=== PATIENT | male | born 1945 | race Caucasian/White ===

== ENCOUNTER 2022-12-15 07:15 | Emergency (ER) | payer OTHER, SELFPAY ==
[2022-12-15 07:28] VITALS: BP 135/73; PULSE 63; RESP 18; TEMP 35.6; O2SAT 98; BMI 30.6
--- NOTE | 2022-12-15 08:39 | ED_ITS ---
HPI - General Adult General Date Seen: 12/15/22 Chief complaint: Hip Injury/Pain Stated complaint: L hip pain Time Seen by Provider: 12/15/22 08:04 Source: patient Mode of arrival: ambulatory Limitations: no limitations History of Present Illness HPI narrative: Patient is a 77-year-old male who has been having problems with his left IT band, has been doing some physical therapy in [place] where he lives. He is it sounds like transitioning to living here, is going to be here through the end of December. He woke up this morning at 5:30 a.m. with more severe pain in his left hip, it hurts to move the hip, hurts to stand, walk, sit. He took some aspirin which has helped somewhat but he still has quite a bit of pain. He has not had any trauma, no fevers, no swelling or redness. Pain does radiate somewhat down the leg, but it is very much related to movement. Related Data Home Medications Medication Instructions Recorded Confirmed amlodipine 5 mg tablet 5 mg PO DAILY 12/15/22 12/15/22 aspirin 325 mg tablet,delayed 325 mg PO DAILY 12/15/22 12/15/22 release atorvastatin 80 mg tablet 80 mg PO DAILY 12/15/22 12/15/22 bisoprolol fumarate 5 mg tablet 5 mg PO DAILY 12/15/22 12/15/22 bupropion HCl 150 mg 24 hr tablet, 150 mg PO DAILY 12/15/22 12/15/22 extended release clopidogrel 75 mg tablet 75 mg PO DAILY 12/15/22 12/15/22 diclofenac sodium 50 mg 50 mg PO DAILY 12/15/22 12/15/22 tablet,delayed release ezetimibe 10 mg tablet 10 mg PO DAILY 12/15/22 12/15/22 indomethacin 25 mg capsule 25 mg PO BID 12/15/22 12/15/22 loratadine 10 mg tablet 10 mg PO DAILY 12/15/22 12/15/22 losartan 100 mg tablet 100 mg PO DAILY 12/15/22 12/15/22 pantoprazole 40 mg tablet,delayed 40 mg PO DAILY 12/15/22 12/15/22 release (Protonix) tadalafil 5 mg tablet 5 mg PO DAILY PRN 12/15/22 12/15/22 Previous Rx's Medication Instructions Recorded lidocaine 5 % topical patch 1 patch topical DAILY #15 ea 12/15/22 lidocaine 5 % topical patch 1 patch topical DAILY #15 ea 12/15/22 oxycodone 5 mg tablet 2.5 - 5 mg (0.5 - 1 x 5 mg) PO Q6H 12/15/22 #7 tabs oxycodone 5 mg tablet 2.5 - 5 mg (0.5 - 1 x 5 mg) PO Q6H 12/15/22 PRN pain #7 tabs Allergies Allergy/AdvReac Type Severity Reaction Status Date / Time No Known Drug Allergies Allergy Verified 12/15/22 07:26 Review of Systems Status of ROS: Reports: 6 or more systems reviewed and unremarkable except as noted in History and below Exam Narrative: Exam Narrative: Vital signs reviewed In general, alert, elderly male. Nontoxic. Abdomen, soft and nontender. Extremities: Examination of the left hip reveals no erythema or warmth. He has full range of motion, he does not have any pain with passive flexion or extension. He does have some pain with full internal and external range of motion at the extremes of range of motion. He has more pain with active range of motion both flexion extension as well as Internal and external range of motion. He has some point tenderness just distal to the hip laterally, does not have tenderness over the trochanteric versus specifically. He does not have any groin tenderness. He walks with a slight limp. He does not have any edema in the leg, no calf tenderness. Pulses intact. Skin: Warm dry well perfused. Const: Vital Signs, click to edit/add: Vital Signs - 24 hr 12/15/22 07:28 Temperature 96.0 F L Pulse Rate [Right Pulse Oximeter] 63 Respiratory Rate 18 Blood Pressure [Ri ght Upper Arm] 135/73 Pulse Oximetry 98 Oxygen Delivery Me thod Room Air Course Course ED Course: Had a lengthy conversation with him about his pain. It does not seem to be trochanteric bursitis, I do not think this represents an infection in the joint, nor does it really see necessarily to be in the joint itself, his tenderness is distal to the hip more in the lateral leg. I do not think x-rays are likely to be necessarily helpful. He wondered about possible problems in his back, and I think this is less likely to be radicular given how related to movement his symptoms are and fact that he has point tenderness in the lateral thigh. I do think physical therapy is a reasonable course of action, [facility] and does not think he will be able to pursue that until he gets back to [place]. [facility] is [facility] and see if he would be able to see Orthopedics here see if they have anything more to offer in the short term. I am going to give him a few oxycodone for short-term relief as well as lidocaine patches. Recommend ice, Tylenol as well. Vital Signs Vital signs: Initial Vital Signs Temperature 96.0 F L 12/15/22 07:28 Temperature Source Temporal Artery Scan 12/15/22 07:28 Pulse Rate 63 12/15/22 07:28 Respiratory Rate 18 12/15/22 07:28 Blood Pressure 135/73 12/15/22 07:28 Blood Pressure Mean 93 12/15/22 07:28 Blood Pressure Position Sitting 12/15/22 07:28 Pulse Oximetry 98 12/15/22 07:28 Oxygen Delivery Method Room Air 12/15/22 07:28 Vital Signs Temperature 96.0 F L 12/15/22 07:28 Pulse Rate 63 12/15/22 07:28 Respiratory Rate 18 12/15/22 07:28 Blood Pressure 135/73 12/15/22 07:28 Pulse Oximetry 98 12/15/22 07:28 Oxygen Delivery Method Room Air 12/15/22 07:28 Temperature 96.0 F L 12/15/22 07:28 Pulse Rate 63 12/15/22 07:28 Respiratory Rate 18 12/15/22 07:28 Blood Pressure 135/73 12/15/22 07:28 Pulse Oximetry 98 12/15/22 07:28 Oxygen Delivery Method Room Air 12/15/22 07:28 Discharge Plan Discharge Clinical Impression: Hip pain, left Patient Disposition: Home, Self-Care Condition: Stable Instructions: Hip Pain (ED) Additional Instructions: Continue physical therapy when you return home. If able, you can follow-up with orthopedics here prior to return to [place], phone number is . Tylenol 1000 mg 3 times daily. Oxycodone if needed for more severe pain, 2 and half to 5 mg q.6 hours p.r.n.. Lidocaine patches may be helpful as well. Ice as needed. Prescriptions: New lidocaine 5 % adhesive patch,medicated 1 patch topical DAILY Qty: 15 0RF Rx Instructions: leave on most painful area for up to 12 hrs oxycodone 5 mg tablet 2.5 - 5 mg PO Q6H Qty: 7 0RF lidocaine 5 % adhesive patch,medicated 1 patch topical DAILY Qty: 15 0RF Rx Instructions: leave on most painful area for up to 12 hrs oxycodone 5 mg tablet 2.5 - 5 mg PO Q6H PRN (Reason: pain) Qty: 7 0RF No Action pantoprazole [Protonix] 40 mg tablet,delayed release (DR/EC) 40 mg PO DAILY atorvastatin 80 mg tablet 80 mg PO DAILY clopidogrel 75 mg tablet 75 mg PO DAILY losartan 100 mg tablet 100 mg PO DAILY amlodipine 5 mg tablet 5 mg PO DAILY bisoprolol fumarate 5 mg tablet 5 mg PO DAILY bupropion HCl 150 mg tablet extended release 24 hr 150 mg PO DAILY diclofenac sodium 50 mg tablet,delayed release (DR/EC) 50 mg PO DAILY tadalafil 5 mg tablet 5 mg PO DAILY PRN indomethacin 25 mg capsule 25 mg PO BID Rx Instructions: administer with food or milk ezetimibe 10 mg tablet 10 mg PO DAILY loratadine 10 mg tablet 10 mg PO DAILY aspirin 325 mg tablet,delayed release (DR/EC) 325 mg PO DAILY Stand Alone Forms: [facility] Info Instructions
--- NOTE | 2022-12-15 09:19 | XR_ITS ---
Patient: SHERIN SUMNER Facility:?[facility] Patient ID:?[id number] Site Patient ID:?[id number]. Site :?1945 Study:?XRay-Hip Left -12/15/2022 9:43:00 AM Ordering Physician:Tristan Wagner Final Report: INDICATION: Pain. COMPARISON: None. TECHNIQUE: AP pelvis, AP left hip, frog-leg lateral left hip, 3 views. FINDINGS: No acute or healing fractures. Normal alignment. Mild decreased femoral head neck offset bilaterally. This can contribute to CAM type impingement symptoms. Mild osseous degenerative change with overall preservation of the left hip joint space. Severe atherosclerotic calcifications. Normal overall bone mineralization. IMPRESSION: No acute left hip fracture. Decreased femoral head neck offset may contribute to impingement symptoms. Dictated by Maria Isabel Prater MD @ 12/15/2022 10:08:39 AM Signed by:?Maria Isabel Prater MD @12/15/2022 10:08:39 AM (Electronic Signature)
== END 2022-12-15 10:36 | disposition home or self-care (01) ==
LOC: ED 08:48
PROVIDERS: Emergency Provider Emergency Medicine
DX: M25.552 Pain in left hip (principal)
CPT/HCPCS: 73502; 99283; 99284

== ENCOUNTER 2023-03-20 15:18 | Emergency (ER) | payer OTHER, SELFPAY ==
[2023-03-20 15:34] VITALS: BP 127/74; PULSE 61; RESP 16; TEMP 36.5; O2SAT 97; BMI 30.7
--- NOTE | 2023-03-20 15:42 | ED.NURSE ---
Consulted with MD about pt's new onset of loss of balance/dizziness. Per MD, pt does not meet stroke code criteria.
--- NOTE | 2023-03-20 16:38 | ED_ITS ---
HPI - General Adult General Chief complaint: Weakness Stated complaint: fall, lack of balance Time Seen by Provider: 03/20/23 16:13 History of Present Illness HPI narrative: This 77-year-old male comes in reporting an episode of feeling off balance this morning. He states that he bent over and when he stood up he was off balance. He does not report any specific vertigo symptoms but did feel like he might fall over. He does not report any unilateral weakness and his speech is normal. Since then he feels better. He states that he took a nap and improved after this. He does not have any fevers report any other symptoms. Related Data Home Medications Medication Instructions Recorded Confirmed amlodipine 5 mg tablet 5 mg PO DAILY 12/15/22 03/20/23 aspirin 325 mg tablet,delayed 325 mg PO DAILY 12/15/22 03/20/23 release atorvastatin 80 mg tablet 80 mg PO DAILY 12/15/22 03/20/23 bisoprolol fumarate 5 mg tablet 5 mg PO DAILY 12/15/22 03/20/23 bupropion HCl 150 mg 24 hr tablet, 150 mg PO DAILY 12/15/22 03/20/23 extended release clopidogrel 75 mg tablet 75 mg PO DAILY 12/15/22 03/20/23 ezetimibe 10 mg tablet 10 mg PO DAILY 12/15/22 03/20/23 indomethacin 25 mg capsule 25 mg PO BID PRN 12/15/22 03/20/23 loratadine 10 mg tablet 10 mg PO DAILY 12/15/22 03/20/23 losartan 100 mg tablet 100 mg PO DAILY 12/15/22 03/20/23 pantoprazole 40 mg tablet,delayed 40 mg PO DAILY 12/15/22 03/20/23 release (Protonix) tadalafil 5 mg tablet 5 mg PO DAILY PRN 12/15/22 03/20/23 ketoconazole 2 % topical cream 0.5 topical BID 03/20/23 prazosin 5 mg capsule 5 mg PO QHS 03/20/23 03/20/23 rosuvastatin 20 mg tablet 20 mg PO QDAY 03/20/23 03/20/23 Previous Rx's Medication Instructions Recorded meclizine 25 mg tablet 25 mg PO QID #20 tabs 03/20/23 Allergies Allergy/AdvReac Type Severity Reaction Status Date / Time No Known Drug Allergies Allergy Verified 03/20/23 15:38 Review of Systems Status of ROS: Reports: 10 or more systems reviewed and unremarkable except as noted in History and below Narrative: Constitutional: No fevers, no weight gain or loss. Eyes: No discharge. No vision changes. HENT: No congestion, no sore throat, no ear pain. Cardiovascular: No chest pain, no palpitations. Respiratory: No shortness of breath, no wheezes, no cough. Gastrointestinal: No abdominal pain, no vomiting, no diarrhea. Genitourinary: No dysuria, no hematuria. Musculoskeletal: Normal range of motion. Skin: No rashes, no pruritis. Neurological: No weakness, sensory change, speech change. Episode of feeling off balance as described above. Endo/Heme/Allergies: No bruising or bleeding. No polydipsia. Pysch: no suicidality, no anxiety, no insomnia. All other systems reviewed and are negative. Exam Narrative: Exam Narrative: Constitutional: Well-developed, well-nourished, no acute distress. HEENT: Normocephalic, atraumatic. Neck: Normal range of motion. Nontender. Supple. Heart: Regular. No murmurs. Normal rate. Intact distal pulses. Lungs: Clear to auscultation. No chest discomfort. No wheezes, rhonchi, or rales. Abdomen: Normal bowel sounds. Nontender. No rebound tenderness. Genitalia: Deferred. Back: No midline tenderness. Normal range of motion. Extremities: Normal range of motion. No injury. Skin: Intact. No rash. Warm. No erythema or pallor. Neurologic: No altered sensation. No weakness. Alert and oriented. No facial asymmetry. Tongue is midline. [id number] is normal. No pronator drift. Soap Drier Operator strength is equal bilaterally. He is able to raise each leg from the bed to my hand. Psychiatric: No suicidality. No anxiety or depression. No insomnia. Nursing notes and vitals signs are reviewed. Const: Vital Signs, click to edit/add: Vital Signs - 24 hr 03/20/23 15:34 Temperature 97.7 F Pulse Rate [Pulse Oximeter] 61 Respiratory Rate 16 Blood Pressure [Ri ght Upper Arm] 127/74 Pulse Oximetry 97 Oxygen Delivery Me thod Room Air Course Vital Signs Vital signs: Initial Vital Signs Temperature 97.7 F 03/20/23 15:34 Temperature Source Temporal Artery Scan 03/20/23 15:34 Pulse Rate 61 03/20/23 15:34 Respiratory Rate 16 03/20/23 15:34 Blood Pressure 127/74 03/20/23 15:34 Blood Pressure Mean 91 03/20/23 15:34 Blood Pressure Position Sitting 03/20/23 15:34 Pulse Oximetry 97 03/20/23 15:34 Oxygen Delivery Method Room Air 03/20/23 15:34 Vital Signs Temperature 97.7 F 03/20/23 15:34 Pulse Rate 61 03/20/23 15:34 Respiratory Rate 16 03/20/23 15:34 Blood Pressure 127/74 03/20/23 15:34 Pulse Oximetry 97 03/20/23 15:34 Oxygen Delivery Method Room Air 03/20/23 15:34 Temperature 97.7 F 03/20/23 15:34 Pulse Rate 61 03/20/23 15:34 Respiratory Rate 16 03/20/23 15:34 Blood Pressure 127/74 03/20/23 15:34 Pulse Oximetry 97 03/20/23 15:34 Oxygen Delivery Method Room Air 03/20/23 15:34 Medical Decision Making MDM Narrative Medical decision making narrative: This patient had a feeling of off balance that occurred when he made a position change from bending forward to standing upright. He continued to have some feeling of woozy-ness but this is improved since then. Currently he is not having any symptoms. He does not have any hearing changes. He does sound that his symptoms are likely due to a peripheral process involving his vestibular system. I did offer lab and imaging studies but stated that this is a clinical diagnosis and such results are for ruling out other things. In a process of shared decision making the patient declined any further studies. He did receive a tablet of meclizine. He is ambulatory and has normal exam. Prescription for meclizine is also provided. I did describe signs and symptoms that would indicate a need for return and re-evaluation. Discharge Plan Discharge Clinical Impression: Acute vestibular neuritis Patient Disposition: Home, Self-Care Condition: Improved Additional Instructions: Take meclizine as needed and directed. Activity as tolerated. Follow up with MD return if worsening. Prescriptions: New meclizine 25 mg tablet 25 mg PO QID Qty: 20 0RF No Action prazosin 5 mg capsule 5 mg PO QHS rosuvastatin 20 mg tablet 20 mg PO QDAY ketoconazole 2 % cream 0.5 topical BID pantoprazole [Protonix] 40 mg tablet,delayed release (DR/EC) 40 mg PO DAILY atorvastatin 80 mg tablet 80 mg PO DAILY clopidogrel 75 mg tablet 75 mg PO DAILY losartan 100 mg tablet 100 mg PO DAILY amlodipine 5 mg tablet 5 mg PO DAILY bisoprolol fumarate 5 mg tablet 5 mg PO DAILY bupropion HCl 150 mg tablet extended release 24 hr 150 mg PO DAILY tadalafil 5 mg tablet 5 mg PO DAILY PRN indomethacin 25 mg capsule 25 mg PO BID PRN Rx Instructions: administer with food or milk ezetimibe 10 mg tablet 10 mg PO DAILY loratadine 10 mg tablet 10 mg PO DAILY aspirin 325 mg tablet,delayed release (DR/EC) 325 mg PO DAILY Follow Up/Referrals: Provider,Not a Local [Primary Care Provider] - Stand Alone Forms: [facility] Info Instructions
[2023-03-20] MEDS: MECLIZINE HCL 25 MG TABLET PO (16:56)
--- OUTSIDE RECORDS SUMMARY | 2023-03-20 16:57 | XMS_ITS | CCD ---
Author Name Unknown Address [address] [place] [address] [place], [place] [id number] Organization Unknown Address [address] [place] [address] [place], [place] [id number] Care Team Providers Care Nutrition Worker Name Role Phone DANILO JULIO MD Attending Physician [phone] Vital Signs Unknown or Not Available. Allergies Allergy Code Allergy Type Reaction Status No Known Allergies 0 No known allergies Active Procedures Unknown or Not Available. History of Immunizations Unknown or Not Available. 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 Active Medications Medication Code Dose Units Frequency Route Modificatio n Start Date/Time amLODIPine Besylate 5MG Oral Tablet 751576 5 MILLIGRAMS DAILY ORAL 023 12:19 Prescription Detail 5 MILLIGRAMS ORAL DAILY Aspirin 325MG Oral Tablet 574524 325 MILLIGRAMS DAILY ORAL 023 12:19 Prescription Detail 325 MILLIGRAMS ORAL DAILY Atorvastatin Calcium 80MG Oral Tablet 297327 80 MILLIGRAMS EVENING ORAL 023 12:19 Prescription Detail 80 MILLIGRAMS ORAL EVENING Bisoprolol Fumarate 5MG Oral Tablet 697612 5 MILLIGRAMS DAILY ORAL 023 12:19 Prescription Detail 5 MILLIGRAMS ORAL DAILY Clopidogrel 75MG Oral Tablet 994458 75 MILLIGRAMS DAILY ORAL 3 12:19 Prescription Detail 75 MILLIGRAMS ORAL DAILY Diclofenac Sodium 50MG Oral Tablet, Enteric Coated 676128 50 MILLIGRAMS NEEDED DAILY ORAL 08/26/2022 12:19 Prescription Detail 50 MILLIGRAMS ORAL NEEDED DAILY Ezetimibe 10 MG Oral Tablet 059286 10 MG DAILY ORAL 08/27/19 12:19 Prescription Detail 10 MG ORAL DAILY Loratadine 10MG Oral Tablet 600663 10 MILLIGRAMS NEEDED DAILY ORAL 08/26/2022 12:19 Prescription Detail 10 MILLIGRAMS ORAL NEEDED DAILY Losartan Potassium 100MG Oral Tablet 715845 100 MILLIGRAMS DAILY ORAL 023 12:19 Prescription Detail 100 MILLIGRAMS ORAL DAILY Pantoprazole Sodium 40MG Oral Tablet, Enteric Coated 680980 40 MILLIGRAMS DAILY ORAL 08/05 12:19 Prescription Detail 40 MILLIGRAMS ORAL DAILY Prazosin HCl 5MG Oral Capsule 527321 5 MILLIGRAMS EVENING ORAL 12:19 Prescription Detail 5 MILLIGRAMS ORAL EVENING Vardenafil HCl 20MG Oral Tablet 307245 20 MILLIGRAMS NEEDED DAILY ORAL 08/26/2022 12:19 Prescription Detail 20 MILLIGRAMS ORAL NEEDED DAILY Triamcinolone Acetonide 0.1% Topical application Cream 7447130 1 APPLICATION NEEDED 2X DAILY TOPICAL 08/26/2022 12:15 Prescription Detail 1 APPLICATION TOPICAL NEEDED 2X DAILY FOR ITCHY SKIN IN GROIN Medications Administered During Visit Unknown or Not Available. Encounters Encounter Diagnosis Diagnosis Code Start Date Acute respiratory failure, u nspecified whether with hypoxia or hypercapnia J9600 08/24/2022 Social History Smoking Status Code Start Date End Date Never smoker 149376161 Patient Decision Aids Unknown or Not Available. Discharge Instructions You were admitted to [facility] on 08/24/2022 17:48 with a principal diagnosis of Cardio-Respiratory Failure and Shock You were discharged from [facility] on 08/24/2022 21:15 Should you have any questions prior to discharge, please contact a member of your healthcare team. If you have left the hospital and have any questions, please contact your primary care physician. Chief Complaint and Reason For Visit Unknown or Not Available. Function Status Unknown or Not Available. Plan of Care Unknown or Not Available. Referral/Transition of Care Unknown or Not Available.
--- OUTSIDE RECORDS SUMMARY | 2023-03-20 16:57 | XMS_ITS | CCD ---
Author Name Unknown Address [address] [place] [address] [place], [place] [id number] Organization Unknown Address [address] [place], [place] [address], [place] [id number] Care Team Providers Care Irrigation Equipment Remover Name Role Phone GLEN OROZCO Attending Physician [phone] [place] OROZCO Rounding (Secondary) Physicia n [phone] Vital Signs Unknown or Not Available. Allergies Allergy Code Allergy Type Reaction Status No Known Allergies 0 No known allergies Active Procedures Unknown or Not Available. History of Immunizations Unknown or Not Available. Problems Problem Code Start Date Resolved Date Status Hematuria 49360621 10/29/2019 Active Anemia 461807730 10/29/2019 Active Urinary retention 109225716 10/31/2019 Active Prostatitis 8494409 Active Left inguinal hernia 766626659 Acti ve BPH 722242867 Active HTN 06616615 Active Transurethral resection of p rostate syndrome 037485456 Active Obstructive sleep apnea 55754582 A ctive Urinary tract infection 48160814 10/31/2019 A ctive Urticaria 450097348 10/19/2020 Active Results TESTOSTERONE TOTAL (MALES) S PH - Collect Date/Time: 10/29/2022 09:54 Test Name Code Test Result Test Units Test Ref Rang e TESTOSTERONE 190.15 ng/dL L=175 H=781 Active Medications Medication Code Dose Units Frequency Route Modificatio n Start Date/Time amLODIPine Besylate 5MG Oral Tablet 607538 5 MILLIGRAMS DAILY ORAL 023 12:19 Prescription Detail 5 MILLIGRAMS ORAL DAILY Aspirin 325MG Oral Tablet 827151 325 MILLIGRAMS DAILY ORAL 023 12:19 Prescription Detail 325 MILLIGRAMS ORAL DAILY Atorvastatin Calcium 80MG Oral Tablet 461016 80 MILLIGRAMS EVENING ORAL 023 12:19 Prescription Detail 80 MILLIGRAMS ORAL EVENING Bisoprolol Fumarate 5MG Oral Tablet 274920 5 MILLIGRAMS DAILY ORAL 023 12:19 Prescription Detail 5 MILLIGRAMS ORAL DAILY Clopidogrel 75MG Oral Tablet 898966 75 MILLIGRAMS DAILY ORAL 3 12:19 Prescription Detail 75 MILLIGRAMS ORAL DAILY Diclofenac Sodium 50MG Oral Tablet, Enteric Coated 460238 50 MILLIGRAMS NEEDED DAILY ORAL 08/26/2022 12:19 Prescription Detail 50 MILLIGRAMS ORAL NEEDED DAILY Ezetimibe 10 MG Oral Tablet 211664 10 MG DAILY ORAL 08/27/19 12:19 Prescription Detail 10 MG ORAL DAILY Loratadine 10MG Oral Tablet 895821 10 MILLIGRAMS NEEDED DAILY ORAL 08/26/2022 12:19 Prescription Detail 10 MILLIGRAMS ORAL NEEDED DAILY Losartan Potassium 100MG Oral Tablet 413413 100 MILLIGRAMS DAILY ORAL 023 12:19 Prescription Detail 100 MILLIGRAMS ORAL DAILY Pantoprazole Sodium 40MG Oral Tablet, Enteric Coated 711936 40 MILLIGRAMS DAILY ORAL 08/05 12:19 Prescription Detail 40 MILLIGRAMS ORAL DAILY Prazosin HCl 5MG Oral Capsule 581540 5 MILLIGRAMS EVENING ORAL 12:19 Prescription Detail 5 MILLIGRAMS ORAL EVENING Vardenafil HCl 20MG Oral Tablet 165722 20 MILLIGRAMS NEEDED DAILY ORAL 08/26/2022 12:19 Prescription Detail 20 MILLIGRAMS ORAL NEEDED DAILY Triamcinolone Acetonide 0.1% Topical application Cream 9480048 1 APPLICATION NEEDED 2X DAILY TOPICAL 08/26/2022 12:15 Prescription Detail 1 APPLICATION TOPICAL NEEDED 2X DAILY FOR ITCHY SKIN IN GROIN Medications Administered During Visit Unknown or Not Available. Encounters Encounter Diagnosis Diagnosis Code Start Date Other specified abnormal findings of blood chemi [facility] R7989 10/29/2022 Social History Smoking Status Code Start Date End Date Never smoker [id number] Patient Decision Aids Unknown or Not Available. Discharge Instructions You were admitted to [facility] on 10/29/2022 09:53 with a principal diagnosis of Other specified abnormal findings of blood chemistry You had the following tests done:TESTOSTERONE TOTAL (MALES) SPH You were discharged from [facility] on 10/29/2022 09:53 Should you have any questions prior to discharge, please contact a member of your healthcare team. If you have left the hospital and have any questions, please contact your primary care physician. Chief Complaint and Reason For Visit Chief Complaint Date of Onset R7989 Function Status Unknown or Not Available. Plan of Care Unknown or Not Available. Referral/Transition of Care Unknown or Not Available.
--- OUTSIDE RECORDS SUMMARY | 2023-03-20 16:57 | XMS_ITS | CCD ---
Author Name Unknown Address [address] [place] [address] [place], [place] [id number] Organization Unknown Address [address] [place] [address] [place], [place] [id number] Care Team Providers Care Collections Associate Name Role Phone DELIA CALVO MD Attending Physician [phone] Vital Signs Vital Sign Value Unit Date/Time Recent/Initial ? BP Systolic 150 mmHg 10/22/2022 08:23 Initial VS BP Diastolic 74 mmHg 10/22/2022 08:23 Initia l VS Respiratory Rate 16 bpm 10/22/2022 08:23 In itial VS Heart Rate 60 bpm 10/22/2022 08:23 Initial VS O2 % BldC Oximetry 96 % 10/22/2022 08:23 Initial VS Body Temperature 98 degrees 10/22/2022 08:23 In itial VS Allergies Allergy Code Allergy Type Reaction Status No Known Allergies 0 No known allergies Active Procedures Procedure Code Procedure Type Date Colonoscopy, Flexible, Proxi mal To Splenic Flexure; w/Bx, Single/Multiple 35289 CPT 10/22/2022 EGD Transoral Biopsy Single/Multiple 75891 CPT 10/22/2022 History of Immunizations Unknown or Not Available. 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 Active Medications Unknown or Not Available. Medications Administered During Visit Unknown or Not Available. Encounters Encounter Diagnosis Diagnosis Code Start Date Encounter for screening for malignant neoplasm o f colon Z1211 10/22/2022 Social History Smoking Status Code Start Date End Date Never smoker [id number] Patient Decision Aids Patient Decision Aid SPH Colonoscopy Discharge SPH EGD Discharge Discharge Instructions You were admitted to [facility] on 10/22/2022 07:41 with a principal diagnosis of Encounter for screening for malignant neoplasm of colon You had the following procedures done:Colonoscopy, Flexible, Proximal To Splenic Flexure; w/Bx, Single/MultipleEGD Transoral Biopsy Single/Multiple You were discharged from [facility] on 10/22/2022 10:38 Should you have any questions prior to discharge, please contact a member of your healthcare team. If you have left the hospital and have any questions, please contact your primary care physician. Chief Complaint and Reason For Visit Chief Complaint Date of Onset ANEMIA FAM HX OF COLON CANCER JODIE PEREIRA 10/11/2022 Function Status Unknown or Not Available. Plan of Care Unknown or Not Available. Referral/Transition of Care Unknown or Not Available.
--- OUTSIDE RECORDS SUMMARY | 2023-03-20 16:57 | XMS_ITS | CCD ---
Author Name Unknown Address [address] [place] [address] [place], [place] [id number] Organization Unknown Address [address] [place], [place] [address], [place] [phone] Care Team Providers Care Betting Agency Manager Name Role Phone GLEN OROZCO Attending Physician [phone] Vital Signs Unknown or Not Available. Allergies Allergy Code Allergy Type Reaction Status No Known Allergies 0 No known allergies Active Procedures Unknown or Not Available. History of Immunizations Unknown or Not Available. Problems Problem Code Start Date Resolved Date Status Hematuria 79402479 10/29/2019 Active Anemia 196765121 10/29/2019 Active Urinary retention 644533727 10/31/2019 Active Prostatitis 5004205 Active Left inguinal hernia 950540240 Acti ve BPH 507835351 Active HTN 60474218 Active Transurethral resection of p rostate syndrome 478305205 Active Obstructive sleep apnea 63488423 A ctive Urinary tract infection 87180606 10/31/2019 A ctive Urticaria 439443587 10/19/2020 Active Results Unknown or Not Available. Active Medications Medication Code Dose Units Frequency Route Modificatio n Start Date/Time amLODIPine Besylate 5MG Oral Tablet 633680 5 MILLIGRAMS DAILY ORAL 023 12:19 Prescription Detail 5 MILLIGRAMS ORAL DAILY Aspirin 325MG Oral Tablet 054856 325 MILLIGRAMS DAILY ORAL 023 12:19 Prescription Detail 325 MILLIGRAMS ORAL DAILY Atorvastatin Calcium 80MG Oral Tablet 460905 80 MILLIGRAMS EVENING ORAL 023 12:19 Prescription Detail 80 MILLIGRAMS ORAL EVENING Bisoprolol Fumarate 5MG Oral Tablet 090123 5 MILLIGRAMS DAILY ORAL 023 12:19 Prescription Detail 5 MILLIGRAMS ORAL DAILY Clopidogrel 75MG Oral Tablet 399414 75 MILLIGRAMS DAILY ORAL 3 12:19 Prescription Detail 75 MILLIGRAMS ORAL DAILY Diclofenac Sodium 50MG Oral Tablet, Enteric Coated 180864 50 MILLIGRAMS NEEDED DAILY ORAL 08/26/2022 12:19 Prescription Detail 50 MILLIGRAMS ORAL NEEDED DAILY Ezetimibe 10 MG Oral Tablet 458518 10 MG DAILY ORAL 08/27/19 12:19 Prescription Detail 10 MG ORAL DAILY Loratadine 10MG Oral Tablet 302350 10 MILLIGRAMS NEEDED DAILY ORAL 08/26/2022 12:19 Prescription Detail 10 MILLIGRAMS ORAL NEEDED DAILY Losartan Potassium 100MG Oral Tablet 157825 100 MILLIGRAMS DAILY ORAL 023 12:19 Prescription Detail 100 MILLIGRAMS ORAL DAILY Pantoprazole Sodium 40MG Oral Tablet, Enteric Coated 108789 40 MILLIGRAMS DAILY ORAL 08/05 12:19 Prescription Detail 40 MILLIGRAMS ORAL DAILY Prazosin HCl 5MG Oral Capsule 671889 5 MILLIGRAMS EVENING ORAL 12:19 Prescription Detail 5 MILLIGRAMS ORAL EVENING Vardenafil HCl 20MG Oral Tablet 027274 20 MILLIGRAMS NEEDED DAILY ORAL 08/26/2022 12:19 Prescription Detail 20 MILLIGRAMS ORAL NEEDED DAILY Triamcinolone Acetonide 0.1% Topical application Cream 7752085 1 APPLICATION NEEDED 2X DAILY TOPICAL 08/26/2022 12:15 Prescription Detail 1 APPLICATION TOPICAL NEEDED 2X DAILY FOR ITCHY SKIN IN GROIN Medications Administered During Visit Unknown or Not Available. Encounters Encounter Diagnosis Diagnosis Code Start Date History and physical examination, administrative [id number] 10/28/2022 Social History Smoking Status Code Start Date End Date Never smoker [id number] Patient Decision Aids Unknown or Not Available. Discharge Instructions You were admitted to [facility] on 10/28/2022 19:52 with a principal diagnosis of Encounter for other administrative examinations You were discharged from [facility] on 10/28/2022 19:52 Should you have any questions prior to discharge, please contact a member of your healthcare team. If you have left the hospital and have any questions, please contact your primary care physician. Chief Complaint and Reason For Visit Chief Complaint Date of Onset L819 Function Status Unknown or Not Available. Plan of Care Unknown or Not Available. Referral/Transition of Care Unknown or Not Available.
--- OUTSIDE RECORDS SUMMARY | 2023-03-20 16:57 | XMS_ITS | CCD ---
Author Name Unknown Address [address] [place] [address] [place], [place] [phone] Organization Unknown Address [address] [place] [address] [place], [place] [phone] Care Team Providers Care Heavy Duty Mechanic Farm Equipment Name Role Phone KARLA PABON Attending Physician [phone] Vital Signs Unknown or Not Available. Allergies Allergy Code Allergy Type Reaction Status No Known Allergies 0 No known allergies Active Procedures Procedure Code Procedure Type Date XR CHEST 2V 125952847 SNOMED CT 09/16/2022 History of Immunizations Unknown or Not Available. Problems Problem Code Start Date Resolved Date Status Hematuria 83883595 10/29/2019 Active Anemia 994807529 10/29/2019 Active Urinary retention 889664470 10/31/2019 Active Prostatitis 2467987 Active Left inguinal hernia 585505020 Acti ve BPH 107110655 Active HTN 36302425 Active Transurethral resection of p rostate syndrome 082234621 Active Obstructive sleep apnea 73826193 A ctive Urinary tract infection 75386377 10/31/2019 A ctive Urticaria 071395364 10/19/2020 Active Results COMP METABOLIC PANEL - [facility] ct Date/Time: 09/16/2022 09:52 Test Name Code Test Result Test Units Test Ref Rang e GLUCOSE 2345-7 109 mg/dL L=74 H=109 BUN 3094-0 15 mg/dL L=7 H=25 CREATININE 2160-0 1.0 mg/dL L=0.7 H=1.3 SODIUM 2951-2 141 mEQ/L L=136 H=145 POTASSIUM 2823-3 4.0 mEQ/L L=3.5 H=5.1 CHLORIDE 2075-0 108 mEQ/L L=98 H=107 CO2 2028-9 28 mEQ/L L=21 H=31 CALCIUM 67952-4 9.6 mg/dL L=8.6 H=10.3 TOTAL PROTEIN 2885-2 6.9 g/dL L=6.4 H=8.9 ALBUMIN 1751-7 4.0 g/dL L=3.5 H=5.7 AST 1920-8 22 U/L L=13 H=39 ALT 1742-6 27 U/L L=10 H=63 ALKALINE PHOS 6768-6 60 U/L L=34 H=104 TOTAL BILI 1975-2 0.9 mg/dL L=0.3 H=1.0 ANION GAP 11681-0 5 mEq/L L=7 H=16 AGE [birth year]-0 76 years eGFR NonAA 26280-1 73 [place] [address]-7 88 CBC - Collect Date/Time: 09:52 Test Name Code Test Result Test Units Test Ref Rang e WBC 6690-2 4.9 K/uL L=4.5 H=11.0 RBC 789-8 4.2 M/uL L=4.6 H=6.0 HEMOGLOBIN 718-7 13.0 g/dL L=14.0 H=18.0 HEMATOCRIT 4544-3 38.3 % L=41.0 H=53.0 MCV 787-2 92.3 fL L=80.0 H=100 MCH 785-6 31.3 pg L=25.0 H=34.0 MCHC 786-4 33.9 g/dl L=31.0 H=37.0 RDW 788-0 12.1 % L=11.0 H=14.5 PLATELET 777-3 210 K/uL L=150 H=450 #NEUT 751-8 2.92 K/ul L=1.50 H=7.20 %NEUT 770-8 59.3 % L=40.0 H=79.0 %LYMPH 736-9 24.9 % L=20.0 H=40.0 %MONO 5905-5 10.5 % L=1.0 H=10.0 %EOSIN 713-8 4.30 % L=1.00 H=4.00 %BASO 706-2 0.60 % L=0.00 H=1.00 %IG 58707-6 0.40 % L=0.00 H=8.00 MANUAL DIFF 46818-9 NOT INDICATED N/A RBC MORPH 6742-1 NOT INDICATED N/A PLT ESTIMATE 39188-1 NOT INDICATED N/A Active Medications Medication Code Dose Units Frequency Route Modificatio n Start Date/Time amLODIPine Besylate 5MG Oral Tablet 640110 5 MILLIGRAMS DAILY ORAL 023 12:19 Prescription Detail 5 MILLIGRAMS ORAL DAILY Aspirin 325MG Oral Tablet 905307 325 MILLIGRAMS DAILY ORAL 023 12:19 Prescription Detail 325 MILLIGRAMS ORAL DAILY Atorvastatin Calcium 80MG Oral Tablet 237523 80 MILLIGRAMS EVENING ORAL 023 12:19 Prescription Detail 80 MILLIGRAMS ORAL EVENING Bisoprolol Fumarate 5MG Oral Tablet 313328 5 MILLIGRAMS DAILY ORAL 023 12:19 Prescription Detail 5 MILLIGRAMS ORAL DAILY Clopidogrel 75MG Oral Tablet 803326 75 MILLIGRAMS DAILY ORAL 3 12:19 Prescription Detail 75 MILLIGRAMS ORAL DAILY Diclofenac Sodium 50MG Oral Tablet, Enteric Coated 925180 50 MILLIGRAMS NEEDED DAILY ORAL 08/26/2022 12:19 Prescription Detail 50 MILLIGRAMS ORAL NEEDED DAILY Ezetimibe 10 MG Oral Tablet 749009 10 MG DAILY ORAL 08/27/19 12:19 Prescription Detail 10 MG ORAL DAILY Loratadine 10MG Oral Tablet 189103 10 MILLIGRAMS NEEDED DAILY ORAL 08/26/2022 12:19 Prescription Detail 10 MILLIGRAMS ORAL NEEDED DAILY Losartan Potassium 100MG Oral Tablet 499659 100 MILLIGRAMS DAILY ORAL 023 12:19 Prescription Detail 100 MILLIGRAMS ORAL DAILY Pantoprazole Sodium 40MG Oral Tablet, Enteric Coated 829097 40 MILLIGRAMS DAILY ORAL 08/05 12:19 Prescription Detail 40 MILLIGRAMS ORAL DAILY Prazosin HCl 5MG Oral Capsule 862386 5 MILLIGRAMS EVENING ORAL 3 12:19 Prescription Detail 5 MILLIGRAMS ORAL EVENING Vardenafil HCl 20MG Oral Tablet 223544 20 MILLIGRAMS NEEDED DAILY ORAL 08/26/2022 12:19 Prescription Detail 20 MILLIGRAMS ORAL NEEDED DAILY Triamcinolone Acetonide 0.1% Topical application Cream 0278548 1 APPLICATION NEEDED 2X DAILY TOPICAL 08/26/2022 12:15 Prescription Detail 1 APPLICATION TOPICAL NEEDED 2X DAILY FOR ITCHY SKIN IN GROIN Medications Administered During Visit Unknown or Not Available. Encounters Encounter Diagnosis Diagnosis Code Start Date Pneumonia, unspecified organism J189 09/16/2022 Social History Smoking Status Code Start Date End Date Never smoker [id number] Patient Decision Aids Unknown or Not Available. Discharge Instructions You were admitted to [facility] on 09/16/2022 10:26 with a principal diagnosis of Pneumonia, unspecified organism You had the following tests done:CBCCOMP METABOLIC PANEL You were discharged from [facility] on 09/16/2022 10:26 Should you have any questions prior to discharge, please contact a member of your healthcare team. If you have left the hospital and have any questions, please contact your primary care physician. Chief Complaint and Reason For Visit Chief Complaint Date of Onset J189 Function Status Unknown or Not Available. Plan of Care Unknown or Not Available. Referral/Transition of Care Unknown or Not Available.
--- OUTSIDE RECORDS SUMMARY | 2023-03-20 16:58 | XMS_ITS | CCD ---
Author Name Unknown Address [address] [place] [address] [place] [id number] Organization Unknown Address [address] [place] [address] [place] [phone] Care Team Providers Care Entry Level Mechanical Engineer Name Role Phone BRODIE MANRIQUE MD Attending Physician [phone] BRODIE MANRIQUE MD Er Physician 2 [phone] Vital Signs Vital Sign Value Unit Date/Time Recent/Initial ? Height 68 in 10/31/2019 11:40 Most Rec ent VS Height 68 in 10/31/2019 11:40 Initial VS BMI (Body Mass Index) 28.89 kg/m^2 10/31/2019 11: 40 Initial VS Weight Measured 190 lbs 10/31/2019 11:40 Ini tial VS BSA (Body Surface Area) 2.03 m^2 10/31/2019 1 1:40 Initial VS BP Systolic 155 mmHg 10/31/2019 11:40 Initial VS BP Diastolic 71 mmHg 10/31/2019 11:40 Initia l VS Respiratory Rate 16 bpm 10/31/2019 11:40 In itial VS Heart Rate 69 bpm 10/31/2019 11:40 Initial VS O2 % BldC Oximetry 96 % 10/31/2019 11:40 Initial VS Body Temperature 98.5 degrees 10/31/2019 11:40 In itial VS BP Systolic 152 mmHg 10/31/2019 15:30 Most Re cent VS BP Diastolic 75 mmHg 10/31/2019 15:30 Most R ecent VS Respiratory Rate 13 bpm 10/31/2019 15:[address] Recent VS Heart Rate 62 bpm 10/31/2019 15:30 Most Rec ent VS O2 % BldC Oximetry 95 % 10/31/2019 15:30 Most Recent VS Body Temperature 98.7 degrees 10/31/2019 15:[address] Recent VS Allergies Allergy Code Allergy Type Reaction Status No Known Allergies 0 No known allergies Active Procedures Procedure Code Procedure Type Date TROPONIN I 415633329 SNOMED CT 10/31/2019 PROTIME [facility] CT 10/31/2019 TSH 3 W/REFLEX TO FT4 146717237 [facility] CT 2019 CULTURE URINE 408282390 [facility] CT 10/31/2019 History of Immunizations Unknown or Not Available. Problems Problem Code Start Date Resolved Date Status Hematuria 00240945 10/29/2019 Active Anemia 677664510 10/29/2019 Active Urinary retention 734687351 10/31/2019 Active Prostatitis 6965866 Active Left inguinal hernia 125754365 Acti ve BPH 711433584 Active HTN 29478989 Active Transurethral resection of p rostate syndrome 104753463 Active Obstructive sleep apnea 39087135 A ctive Urinary tract infection 94844378 10/31/2019 A ctive Urticaria 824784790 10/19/2020 Active Results BRAIN VIKRAM PEPTIDE - Collect Date/Time: 10/31/2019 12:05 Test Name Code Test Result Test Units Test Ref Rang e BNP 14232-7 83.9 N/A COMP METABOLIC PANEL - [facility] ct Date/Time: 10/31/2019 12:05 Test Name Code Test Result Test Units Test Ref Rang e GLUCOSE 2345-7 105 mg/dL L=74 H=118 BUN 3094-0 15 mg/dL L=8 H=26 CREATININE 2160-0 0.9 mg/dL L=0.7 H=1.3 SODIUM 2951-2 139 mEQ/L L=136 H=144 POTASSIUM 2823-3 3.9 mEQ/L L=3.6 H=5.1 CHLORIDE 2075-0 106 mEQ/L L=101 H=111 CO2 2028-9 24 mEQ/L L=22 H=32 CALCIUM 19372-1 8.7 mg/dL L=8.9 H=10.3 TOTAL PROTEIN 2885-2 6.7 g/dL L=6.5 H=8.1 ALBUMIN 1751-7 3.4 g/dL L=3.5 H=5.0 AST 1920-8 19 U/L L=10 H=35 ALT 1742-6 22 IU/L L=17 H=63 ALKALINE PHOS 6768-6 70 IU/L L=38 H=126 TOTAL BILI 1975-2 0.9 mg/dL L=0.3 H=1.2 ANION GAP 44303-9 9 mEq/L L=7 H=16 AGE [birth year]-2 73 years eGFR NonAA 52139-0 83 [place]GFR [place] 32371-3 100 TROPONIN I - Collect Date/Ti me: 10/31/2019 12:05 Test Name Code Test Result Test Units Test Ref Rang e TROPONIN 30252-6 0.02 ng/ml L=0.00 H=0.49 TSH 3 W/REFLEX TO FT4 - Antony ect Date/Time: 10/31/2019 12:05 Test Name Code Test Result Test Units Test Ref Rang e TSH 3RD GEN REF T4 43157-0 3.56 mIu/ml L=0.34 H=5.60 CBC - Collect Date/Time: 12:05 Test Name Code Test Result Test Units Test Ref Rang e WBC 6690-2 8.7 K/uL L=4.5 H=11.0 RBC 789-8 3.5 M/uL L=4.6 H=6.0 HEMOGLOBIN 718-7 10.9 g/dL L=14.0 H=18.0 HEMATOCRIT 4544-3 32.2 % L=41.0 H=53.0 MCV 787-2 92.5 fL L=80.0 H=100 MCH 785-6 31.3 pg L=25.0 H=34.0 MCHC 786-4 33.9 g/dl L=31.0 H=37.0 RDW 788-0 11.7 % L=11.0 H=14.5 PLATELET 777-3 243 K/uL L=150 H=450 #NEUT 751-8 6.98 K/ul L=1.50 H=7.20 %NEUT 770-8 80.2 % L=40.0 H=79.0 %LYMPH 736-9 9.7 % L=20.0 H=40.0 %MONO 5905-5 7.6 % L=1.0 H=10.0 %EOSIN 713-8 1.60 % L=1.00 H=4.00 %BASO 706-2 0.30 % L=0.00 H=1.00 %IG 38287-6 0.60 % L=0.00 H=8.00 MANUAL DIFF 48367-2 NOT INDICATED N/A RBC MORPH 6742-1 NOT INDICATED N/A PLT ESTIMATE 75213-7 NOT INDICATED N/A PROTIME ANTI-COAG THERAPY - Collect Date/Time: 10/31/2019 12:05 Test Name Code Test Result Test Units Test Ref Rang e PROTIME 5902-2 14.6 sec INR 6301-6 1.3 L=0.9 H=4.5 PTT - Collect Date/Time: 12:05 Test Name Code Test Result Test Units Test Ref Rang e PTT 77457-4 28 sec L=25 H=38 URINALYSIS - Collect Date/Ti me: 10/31/2019 11:50 Test Name Code Test Result Test Units Test Ref Rang e COLOR 84084-1 DK. RED N/A CLARITY 80553-0 CLEAR N/A GLUCOSE 07079-9 TRACE N/A BILIRUBIN 00691-8 3+ N/A KETONE 23149-4 1+ N/A SP GRAVITY 64350-3 1.010 N/[place] [address]-9 8.0 N/A PROTEIN 40888-8 3+ N/A UROBILINOGEN 83755-1 4.0 N/A NITRITE 04568-2 POSITIVE N/A BLOOD 99937-1 3+ N/A LEUKOCYTES 12194-6 3+ N/A MICROSCOPIC 71189-8 SEE BELOW N/A WBC 5821-4 TNTC N/A RBC 23698-6 TNTC N/A EPI CELLS 29217-9 NONE SEEN N/A BACTERIA 5769-5 NONE SEEN N/A CRYSTALS 30311-5 NONE SEEN N/A MUCOUS 8247-9 NONE SEEN N/A TRICHOMONAS 94231-8 NONE SEEN N/A YEAST 89675-5 NONE SEEN N/A CASTS 9439-1 NONE SEEN N/A CULTURE 28703-8 PENDING N/A Spec Source: 29578-8 Void N/A BB ABO RH NO CHARGE - Collec t Date/Time: 10/31/2019 13:21 Test Name Code Test Result Test Units Test Ref Rang e ABO GROUP 883-9 O N/A RH TYPE 03310-5 POSITIVE N/A BB TYPE AND SCREEN - Collect Date/Time: 10/31/2019 12:05 Test Name Code Test Result Test Units Test Ref Rang e ABO GROUP 883-9 0 N/A RH TYPE 65121-1 POS N/A ANTIBODY SCRN 895-3 NEGATIVE N/A Active Medications Medications Administered During Visit Medication Dose Units Frequency Route Date/Time of Last Dose VALENTE LR 1000ML X1 2019 12:48 LEVOFLOXACIN 750MG IN 150ML D5W PREMIX X1 10/31/2019 13:2 0 Encounters Encounter Diagnosis Diagnosis Code Start Date Urinary tract infection, site not specified N390 10/31/2019 Social History Smoking Status Code Start Date End Date Never smoker [id number] Patient Decision Aids Patient Decision Aid ANEMIA HEMATURIA HOW TO CARE FOR YOUR SUPRAPU BIC CATHETER URINARY TRACT INFECTION IN M EN Discharge Instructions You were admitted to [facility] on 10/31/2019 11:36 with a principal diagnosis of Urinary tract infection, site not specified You had the following tests done:BB ABO RH NO CHARGEBB TYPE AND SCREENBRAIN VIKRAM PEPTIDECBCCOMP METABOLIC PANELPROTIME ANTI-COAG THERAPYPTTTROPONIN ITSH 3 W/REFLEX TO [id number] You were discharged from [facility] on 10/31/2019 15:50 Should you have any questions prior to discharge, please contact a member of your healthcare team. If you have left the hospital and have any questions, please contact your primary care physician. Chief Complaint and Reason For Visit Chief Complaint Date of Onset POST OP BLEEDING FATIGUE LIGHT HEADED Function Status Unknown or Not Available. Plan of Care Unknown or Not Available. Referral/Transition of Care Unknown or Not Available.
--- OUTSIDE RECORDS SUMMARY | 2023-03-20 16:58 | XMS_ITS | CCD ---
Author Name Unknown Address [address] [place] [address] [place] [id number] Organization Unknown Address [address] [place] [address] [place], [place] [phone] Care Team Providers Care Hot Wort Settler Name Role Phone ABHINAV GARCIA DO Attending Physician [phone] DANILO JULIO MD Er Physician [phone] Nolvia Sanderson Registered Nurse [phone] Vital Signs Vital Sign Value Unit Date/Time Recent/Initial ? BMI (Body Mass Index) 31.78 kg/m^2 08/24/2022 17: 55 Initial VS Weight Measured 209 lbs 08/24/2022 17:55 Ini tial VS Height 68 in 08/24/2022 17:55 Initial VS BSA (Body Surface Area) 2.13 m^2 08/24/2022 1 7:55 Initial VS BP Systolic 159 mmHg 08/24/2022 17:55 Initial VS BP Diastolic 72 mmHg 08/24/2022 17:55 Initia l VS Respiratory Rate 20 bpm 08/24/2022 17:55 In itial VS Heart Rate 97 bpm 08/24/2022 17:55 Initial VS O2 % BldC Oximetry 91 % 08/24/2022 17:55 Initial VS Body Temperature 101.8 degrees 08/24/2022 17:55 In itial VS Weight Measured 215.2 lbs 08/24/2022 22:01 Mos t Recent VS BP Systolic 147 mmHg 08/26/2022 17:11 Most Re cent VS BP Diastolic 67 mmHg 08/26/2022 17:11 Most R ecent VS Respiratory Rate 20 bpm 08/26/2022 17:[address] Recent VS Heart Rate 87 bpm 08/26/2022 17:11 Most Rec ent VS O2 % BldC Oximetry 94 % 08/26/2022 17:11 Most Recent VS Body Temperature 97.9 degrees 08/26/2022 17:[address] Recent VS Allergies Allergy Code Allergy Type Reaction Status No Known Allergies 0 No known allergies Active Procedures Procedure Code Procedure Type Date RESP PANEL [id number] [id number] [facility] 08/24/2022 PROTIME NON THERAPY 285002804 [facility] 08/25/[id number] [facility] CT 08/24/2022 XR CHEST 1V [id number] [facility] CT 08/24/2022 CT CHEST PE PROTOCOL W CONTRAST [id number] [facility] 08/24/2022 CT CHEST W/CONTRAST [id number] [facility] 08/27/19 History of Immunizations Unknown or Not Available. 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 Obstructive sleep apnea 26384012 A ctive Urinary tract infection 42090381 10/31/2019 A ctive Urticaria 956536635 10/19/2020 Active Results BRAIN VIKRAM PEPTIDE - Collect Date/Time: 08/24/2022 19:00 Test Name Code Test Result Test Units Test Ref Rang e BNP 34128-2 168 N/A CHEM12 + MG - Collect Date/T lorrie: 08/26/2022 06:20 Test Name Code Test Result Test Units Test Ref Rang e GLUCOSE 2345-7 111 mg/dL L=74 H=109 BUN 3094-0 16 mg/dL L=7 H=25 CREATININE 2160-0 0.9 mg/dL L=0.7 H=1.3 SODIUM 2951-2 139 mEQ/L L=136 H=145 POTASSIUM 2823-3 4.2 mEQ/L L=3.5 H=5.1 CHLORIDE 2075-0 109 mEQ/L L=98 H=107 CO2 2028-9 23 mEQ/L L=21 H=31 CALCIUM 46764-0 8.8 mg/dL L=8.6 H=10.3 TOTAL PROTEIN 2885-2 5.9 g/dL L=6.4 H=8.9 ALBUMIN 1751-7 3.5 g/dL L=3.5 H=5.7 AST 1920-8 17 U/L L=13 H=39 ALT 1742-6 19 U/L L=10 H=63 ALKALINE PHOS 6768-6 50 U/L L=34 H=104 TOTAL BILI 1975-2 0.6 mg/dL L=0.3 H=1.0 MAGNESIUM 04760-9 2.09 mg/dL L=1.90 H=2.70 ANION GAP 59427-0 7 mEq/L L=7 H=16 AGE 685[birth year]-6 76 years eGFR NonAA 68959-5 82 [place] [address]-6 99 COMP METABOLIC PANEL - Colle ct Date/Time: 08/25/2022 06:20 Test Name Code Test Result Test Units Test Ref Rang e GLUCOSE 2345-7 104 mg/dL L=74 H=109 BUN 3094-0 17 mg/dL L=7 H=25 CREATININE 2160-0 0.9 mg/dL L=0.7 H=1.3 SODIUM 2951-2 139 mEQ/L L=136 H=145 POTASSIUM 2823-3 4.0 mEQ/L L=3.5 H=5.1 CHLORIDE 2075-0 109 mEQ/L L=98 H=107 CO2 2028-9 23 mEQ/L L=21 H=31 CALCIUM 66369-6 8.5 mg/dL L=8.6 H=10.3 TOTAL PROTEIN 2885-2 5.9 g/dL L=6.4 H=8.9 ALBUMIN 1751-7 3.6 g/dL L=3.5 H=5.7 AST 1920-8 18 U/L L=13 H=39 ALT 1742-6 20 U/L L=10 H=63 ALKALINE PHOS 6768-6 46 U/L L=34 H=104 TOTAL BILI 1974-2 1.1 mg/dL L=0.3 H=1.0 ANION GAP 80795-1 7 mEq/L L=7 H=16 AGE 34861-4 76 years eGFR NonAA 82286-8 82 eGFR AA 70655-1 99 COMP METABOLIC PANEL - Colle ct Date/Time: 08/24/2022 19:00 Test Name Code Test Result Test Units Test Ref Rang e GLUCOSE 2345-7 98 mg/dL L=74 H=109 BUN 3094-0 20 mg/dL L=7 H=25 CREATININE 2160-0 1.0 mg/dL L=0.7 H=1.3 SODIUM 2951-2 141 mEQ/L L=136 H=145 POTASSIUM 2823-3 3.9 mEQ/L L=3.5 H=5.1 CHLORIDE 2075-0 110 mEQ/L L=98 H=107 CO2 2028-9 24 mEQ/L L=21 H=31 CALCIUM 05746-9 9.2 mg/dL L=8.6 H=10.3 TOTAL PROTEIN 2885-2 6.6 g/dL L=6.4 H=8.9 ALBUMIN 1751-7 4.0 g/dL L=3.5 H=5.7 AST 1920-8 19 U/L L=13 H=39 ALT 1742-6 24 U/L L=10 H=63 ALKALINE PHOS 6768-6 57 U/L L=34 H=104 TOTAL BILI 1975-2 0.8 mg/dL L=0.3 H=1.0 ANION GAP 34960-0 7 mEq/L L=7 H=16 AGE 90567-0 76 years eGFR NonAA 75525-5 73 [place] [address]-9 88 CRP QUANT (SPH) - Collect Da te/Time: 08/24/2022 19:00 Test Name Code Test Result Test Units Test Ref Rang e CRP 1988-5 1.267 mg/dL L=0.000 H=0.50 0 LACTATE W/REFLEX - Collect D ate/Time: 08/24/2022 19:00 Test Name Code Test Result Test Units Test Ref Rang e LACTIC ACID 2524-7 1.4 mmol/L L=0.5 H=2.0 MAGNESIUM - Collect Date/Zelal[place] e: 08/25/2022 06:20 Test Name Code Test Result Test Units Test Ref Rang e MAGNESIUM 04351-5 2.17 mg/dL L=1.90 H=2.70 MAGNESIUM - Collect Date/[place]elal[place] e: 08/24/2022 19:00 Test Name Code Test Result Test Units Test Ref Rang e MAGNESIUM 94559-7 1.58 mg/dL L=1.90 H=2.70 PROCALCITONIN - Collect Date /Time: 08/26/2022 06:20 Test Name Code Test Result Test Units Test Ref Rang e PROCALCITONIN. X0201 4.54 PROCALCITONIN - Collect Date /Time: 08/24/2022 19:00 Test Name Code Test Result Test Units Test Ref Rang e PROCALCITONIN. X0201 0.85 TROPONIN I - Collect Date/Ti me: 08/24/2022 19:00 Test Name Code Test Result Test Units Test Ref Rang e TROPONIN 15969-3 0.02 ng/ml L=0.00 H=0.49 CBC - Collect Date/Time: 06:20 Test Name Code Test Result Test Units Test Ref Rang e WBC 6690-2 10.3 K/uL L=4.5 H=11.0 RBC 789-8 3.5 M/uL L=4.6 H=6.0 HEMOGLOBIN 718-7 11.2 g/dL L=14.0 H=18.0 HEMATOCRIT 4544-3 32.4 % L=41.0 H=53.0 MCV 787-2 92.8 fL L=80.0 H=100 MCH 785-6 32.1 pg L=25.0 H=34.0 MCHC 786-4 34.6 g/dl L=31.0 H=37.0 RDW 788-0 12.1 % L=11.0 H=14.5 PLATELET 777-3 150 K/uL L=150 H=450 #NEUT 751-8 8.44 K/ul L=1.50 H=7.20 %NEUT 770-8 82.3 % L=40.0 H=79.0 %LYMPH 736-9 9.4 % L=20.0 H=40.0 %MONO 5905-5 7.3 % L=1.0 H=10.0 %EOSIN 713-8 0.40 % L=1.00 H=4.00 %BASO 706-2 0.20 % L=0.00 H=1.00 %IG 22166-5 0.40 % L=0.00 H=8.00 MANUAL DIFF 11628-1 NOT INDICATED N/A RBC MORPH 6742-1 NOT INDICATED N/A PLT ESTIMATE 73634-4 NOT INDICATED N/A CBC - Collect Date/Time: 06:20 Test Name Code Test Result Test Units Test Ref Rang e WBC 6690-2 10.3 K/uL L=4.5 H=11.0 RBC 789-8 3.8 M/uL L=4.6 H=6.0 HEMOGLOBIN 718-7 12.0 g/dL L=14.0 H=18.0 HEMATOCRIT 4544-3 35.7 % L=41.0 H=53.0 MCV 787-2 93.0 fL L=80.0 H=100 MCH 785-6 31.3 pg L=25.0 H=34.0 MCHC 786-4 33.6 g/dl L=31.0 H=37.0 RDW 788-0 12.0 % L=11.0 H=14.5 PLATELET 777-3 163 K/uL L=150 H=450 #NEUT 751-8 8.97 K/ul L=1.50 H=7.20 %NEUT 770-8 87.1 % L=40.0 H=79.0 %LYMPH 736-9 5.8 % L=20.0 H=40.0 %MONO 5905-5 6.3 % L=1.0 H=10.0 %EOSIN 713-8 0.10 % L=1.00 H=4.00 %BASO 706-2 0.40 % L=0.00 H=1.00 %IG 47573-2 0.30 % L=0.00 H=8.00 MANUAL DIFF 76401-6 NOT INDICATED N/A RBC MORPH 6742-1 NOT INDICATED N/A PLT ESTIMATE 35315-8 NOT INDICATED N/A CBC - Collect Date/Time: 19:00 Test Name Code Test Result Test Units Test Ref Rang e WBC 6690-2 8.6 K/uL L=4.5 H=11.0 RBC 789-8 4.1 M/uL L=4.6 H=6.0 HEMOGLOBIN 718-7 13.0 g/dL L=14.0 H=18.0 HEMATOCRIT 4544-3 37.8 % L=41.0 H=53.0 MCV 787-2 91.5 fL L=80.0 H=100 MCH 785-6 31.5 pg L=25.0 H=34.0 MCHC 786-4 34.4 g/dl L=31.0 H=37.0 RDW 788-0 11.9 % L=11.0 H=14.5 PLATELET 777-3 183 K/uL L=150 H=450 #NEUT 751-8 7.64 K/ul L=1.50 H=7.20 %NEUT 770-8 88.8 % L=40.0 H=79.0 %LYMPH 736-9 4.6 % L=20.0 H=40.0 %MONO 5905-5 5.9 % L=1.0 H=10.0 %EOSIN 713-8 0.30 % L=1.00 H=4.00 %BASO 706-2 0.20 % L=0.00 H=1.00 %IG 49322-8 0.20 % L=0.00 H=8.00 MANUAL DIFF 72674-8 NOT INDICATED N/A RBC MORPH 6742-1 NOT INDICATED N/A PLT ESTIMATE 32971-3 NOT INDICATED N/A D-DIMER - Collect Date/Time: 08/24/2022 19:00 Test Name Code Test Result Test Units Test Ref Rang e D-DIMER 28914-8 1.17 ug/ml FEU PROTIME NON THERAPY - Collec t Date/Time: 08/24/2022 19:00 Test Name Code Test Result Test Units Test Ref Rang e PT-NONTHERAPY 5902-2 14.9 sec L=10.1 H=12 .5 PT INR 6301-6 1.3 L=0.9 H=1.1 PTT - Collect Date/Time: 19:00 Test Name Code Test Result Test Units Test Ref Rang e PTT 60962-0 26 sec L=20 H=180 RESP PANEL W/COVID - Collect Date/Time: 08/24/2022 19:00 Test Name Code Test Result Test Units Test Ref Rang e ADENOVIRUS 97628-7 NOT DETECTED N/A NORMAL: NOT DETECTED CoV HKU1 18172-9 NOT DETECTED N/A NORMAL: NOT DETECTED CoV NL63 84060-9 NOT DETECTED N/A NORMAL: NOT DETECTED CoV 229E 41505-8 NOT DETECTED N/A NORMAL: NOT DETECTED CoV OC43 23352-3 NOT DETECTED N/A NORMAL: NOT DETECTED SARS-CoV-2 97205-2 NOT DETECTED N/A NORMAL: NOT DETECTED hMPV 12239-4 NOT DETECTED N/A NORMAL: NOT DETECTED FLU A 05738-0 NOT DETECTED N/A NORMAL: NOT DETECTED FLU A H1 28684-5 NOT DETECTED N/A NORMAL: NOT DETECTED FLU A H1-2009 78137-1 NOT DETECTED N/A NORMAL: N OT DETECTED FLU A H3 25791-1 NOT DETECTED N/A NORMAL: NOT DETECTED FLU B 21008-1 NOT DETECTED N/A NORMAL: NOT DETECTED PARA FLU 1 27160-3 NOT DETECTED N/A NORMAL: NOT DETECTED PARA FLU 2 55218-7 NOT DETECTED N/A NORMAL: NOT DETECTED PARA FLU 3 30111-0 NOT DETECTED N/A NORMAL: NOT DETECTED PARA FLU 4 52670-1 NOT DETECTED N/A NORMAL: NOT DETECTED RHINO/ENTEROVIRUS 46619-5 NOT DETECTED N/A ROMAIN L: [place] 05164-8 NOT DETECTED N/A NORMAL: NOT DETECTED M. PNEUMONIAE 05594-8 NOT DETECTED N/A NORMAL: N OT DETECTED C. PNEUMONIAE 25379-3 NOT DETECTED N/A NORMAL: N OT DETECTED B. PERTUSSIS 62667-2 NOT DETECTED N/A NORMAL: NO T DETECTED B. PARAPERTUSSIS 09801-1 NOT DETECTED N/A NORMAL : NOT DETECTED SEND TO [facility]? X0212 NO N/A STATE REPORTABLE BIO 95951-8 NONE N/A URINALYSIS - Collect Date/Ti me: 08/24/2022 19:30 Test Name Code Test Result Test Units Test Ref Rang e COLOR 69256-9 YELLOW N/A CLARITY 39048-1 CLEAR N/A GLUCOSE 83776-0 NEGATIVE N/A BILIRUBIN 82366-7 NEGATIVE N/A KETONE 96214-3 NEGATIVE N/A SP GRAVITY 99271-1 1.020 N/[place] 90120-5 6.0 N/A PROTEIN 76785-0 NEGATIVE N/A UROBILINOGEN 40675-4 1.0 N/A NITRITE 05351-0 NEGATIVE N/A BLOOD 74342-1 NEGATIVE N/A LEUKOCYTES 25818-4 NEGATIVE N/A MICROSCOPIC 97046-6 NOT INDICATED N/A Spec Source: 20386-5 Clean Catch N/A Active Medications Medication Code Dose Units Frequency Route Modificatio n Start Date/Time amLODIPine Besylate 5MG Oral Tablet 065029 5 MILLIGRAMS DAILY ORAL 023 12:19 Prescription Detail 5 MILLIGRAMS ORAL DAILY Aspirin 325MG Oral Tablet 134256 325 MILLIGRAMS DAILY ORAL 023 12:19 Prescription Detail 325 MILLIGRAMS ORAL DAILY Atorvastatin Calcium 80MG Oral Tablet 775734 80 MILLIGRAMS EVENING ORAL 023 12:19 Prescription Detail 80 MILLIGRAMS ORAL EVENING Bisoprolol Fumarate 5MG Oral Tablet 083541 5 MILLIGRAMS DAILY ORAL 023 12:19 Prescription Detail 5 MILLIGRAMS ORAL DAILY Clopidogrel 75MG Oral Tablet 773000 75 MILLIGRAMS DAILY ORAL 12:19 Prescription Detail 75 MILLIGRAMS ORAL DAILY Diclofenac Sodium 50MG Oral Tablet, Enteric Coated 059042 50 MILLIGRAMS NEEDED DAILY ORAL 08/26/2022 12:19 Prescription Detail 50 MILLIGRAMS ORAL NEEDED DAILY Ezetimibe 10 MG Oral Tablet 699813 10 MG DAILY ORAL 08/27/19 12:19 Prescription Detail 10 MG ORAL DAILY Loratadine 10MG Oral Tablet 426129 10 MILLIGRAMS NEEDED DAILY ORAL 08/26/2022 12:19 Prescription Detail 10 MILLIGRAMS ORAL NEEDED DAILY Losartan Potassium 100MG Oral Tablet 081749 100 MILLIGRAMS DAILY ORAL 023 12:19 Prescription Detail 100 MILLIGRAMS ORAL DAILY Pantoprazole Sodium 40MG Oral Tablet, Enteric Coated 294569 40 MILLIGRAMS DAILY ORAL 08/05 12:19 Prescription Detail 40 MILLIGRAMS ORAL DAILY Prazosin HCl 5MG Oral Capsule 441478 5 MILLIGRAMS EVENING ORAL 3 12:19 Prescription Detail 5 MILLIGRAMS ORAL EVENING Vardenafil HCl 20MG Oral Tablet 412336 20 MILLIGRAMS NEEDED DAILY ORAL 08/26/2022 12:19 Prescription Detail 20 MILLIGRAMS ORAL NEEDED DAILY Triamcinolone Acetonide 0.1% Topical application Cream 2059654 1 APPLICATION NEEDED 2X DAILY TOPICAL 08/26/2022 12:15 Prescription Detail 1 APPLICATION TOPICAL NEEDED 2X DAILY FOR ITCHY SKIN IN GROIN Medications Administered During Visit Medication Dose Units Frequency Route Date/Time of Last Dose ALBUTEROL/IPRATROPIUM 3ML INH NEB 3 ML X1 INHALE 08/24/2022 19:0 9 VALENTE 0.9NS 1000 ML 1 BAG X1 I.V. 19:47 VALENTE 0.9NS 1000 ML 1 EA X1 I.V. 19:05 PRAZOSIN 5MG ORAL CAPSULE 5 MG BID PO 08/25/2022 08:1 5 CLOPIDOGREL 75MG ORAL TABLET 75 MG DAILY PO 08/25/2022 08:1 6 PANTOPRAZOLE 40MG ORAL TABLET 40 MG DAILY PO 08/26/2022 08:2 2 ATORVASTATIN 40MG ORAL TABLET 80 MG BEDTIME PO 08/25/2022 21:1 7 LOSARTAN 100MG ORAL TABLET 100 MG DAILY PO 08/26/2022 08:2 4 EZETIMIBE 10MG ORAL TABLET 10 MG DAILY PO 08/26/2022 08:2 3 amLODIPine BESYLATE 5MG ORAL TABLET 5 MG DAILY PO 08/26/2022 08:2 3 ASPIRIN 325MG ORAL TABLET 325 MG DAILY PO 08/25/2022 08:1 7 BISOPROLOL 5MG ORAL TABLET 5 MG DAILY PO 08/26/2022 08:2 2 AZITHROMYCIN 500MG IN 250ML NS 1 EA Q24H IVPB 08/24/2022 23:0 2 cefTRIAXone 1GM INJECTION VIAL 2 GM Q24H IV PUSH (SLOW) 08/24/2022 22:59 ACETAMINOPHEN 325MG ORAL TABLET 650 MG PRNQ4H PO 08/26/2022 08:2 1 ALBUTEROL 0.083%-2.5MG/3ML NEB SOLUTION 3 ML PRNQ2H INHALE 08/26/2022 16:3 3 predniSONE 20MG ORAL TABLET 40 MG DAILY PO 08/26/2022 08:2 2 guaiFENesin ER 600MG ORAL TABLET 600 MG BID PO 08/26/2022 08:2 3 BENZONATATE 100MG ORAL CAPSULE 100 MG TID PO 08/26/2022 08:2 4 VALENTE LR 1000ML 1 EA CONT IV I.V. 2022 23:03 MAGNESIUM SULFATE 2GM IN 50ML PREMIX 1 EA PRN PER PROTOCOL IVPB 01:37 ALBUTEROL/IPRATROPIUM 3ML INH NEB 3 ML RT QID INHALE 08/26/2022 16:3 4 AZITHROMYCIN 500MG IN 250ML NS 1 EA Q24H IVPB 08/25/2022 23:4 6 cefTRIAXone 1GM INJECTION VIAL 2 GM Q24H IV PUSH (SLOW) 08/25/2022 23:46 buPROPion XL 150MG (24H) ORAL TABLET 150 MG DAILY PO 08/26/2022 08:23 PRAZOSIN 5MG ORAL CAPSULE 5 MG PM PO 08/25/2022 21:1 6 POLYETHYL GLYCOL 17GM POWDER PACKET 17 GM DAILY PO 08/26/2022 08: 24 SENNOSIDES 8.6MG ORAL TABLET 1 TABLET BID PO 08/26/2022 08:2 4 Encounters Encounter Diagnosis Diagnosis Code Start Date Sepsis, unspecified organism A419 Social History Smoking Status Code Start Date End Date Never smoker [id number] Patient Decision Aids Patient Decision Aid [facility] Patient Portal Education Discharge Instructions You were admitted to [facility] on 08/24/2022 21:15 with a principal diagnosis of Sepsis, unspecified organism You had the following tests done:[id number] + MGPROCALCITONINCBCCOMP METABOLIC PANELMAGNESIUMURINALYSISBRAIN VIKRAM PEPTIDECBCCOMP METABOLIC PANELCRP QUANT ([facility])D-DIMERLACTATE W/REFLEXMAGNESIUMPROCALCITONINPROTIME NON THERAPYPTTRESP PANEL W/COVIDTROPONIN I You were discharged from [facility] on 08/26/2022 17:45 Should you have any questions prior to discharge, please contact a member of your healthcare team. If you have left the hospital and have any questions, please contact your primary care physician. Discharge diagnosisDischarge diagnosis: Bilateral Pneumonia, Acute Hypoxic Respiratory Failure DietRegular diet, as tolerated. ActivitiesActivity as tolerated. EquipmentIncentive Spirometer Notify physician ifShortness of breath, Nausea and/or vomiting, Fever over 101 F.Unexpected bleeding. [facility] Arnold Home MedicationsNo home medications to return to pt. Patient belongingsPersonal items returned to pt/family. Designated Caregiver (R)Self. Chief Complaint and Reason For Visit Chief Complaint Date of Onset POST- VIRAL PNEUMONIA ACUTE HYPOXIC RESP IRATORY FAILURE 08/24/2022 Function Status Unknown or Not Available. Plan of Care Unknown or Not Available. Referral/Transition of Care Reason for Transfer: Please follow up with Dr. Arnold on , 08/28 at 1:45 PM. Referring Provider: [facility] Address: [address] [place] [address] [place] [address] Appointment Date: 08/28/2022
--- OUTSIDE RECORDS SUMMARY | 2023-03-20 16:58 | XMS_ITS | CCD ---
Author Name Unknown Address [address] [place] [address] [place], [place] [phone] Organization Unknown Address [address] [place] [address] [place], [place] [phone] Care Team Providers Care Marine Services Technician Name Role Phone KARLA PABON Attending Physician [phone] KARLA PABON Rounding (Secondary) Physician [phone] Vital Signs Unknown or Not Available. Allergies Allergy Code Allergy Type Reaction Status No Known Allergies 0 No known allergies Active Procedures Unknown or Not Available. History of Immunizations Unknown or Not Available. Problems Problem Code Start Date Resolved Date Status Hematuria 82396761 10/29/2019 Active Anemia 683562981 10/29/2019 Active Urinary retention 521998131 10/31/2019 Active Prostatitis 8094295 Active Left inguinal hernia 512325267 Acti ve BPH 510673263 Active HTN 20024222 Active Transurethral resection of p rostate syndrome 175555372 Active Obstructive sleep apnea 88768039 A ctive Urinary tract infection 57088519 10/31/2019 A ctive Urticaria 357225146 10/19/2020 Active Results IRON & TIBC PANEL - Collect Date/Time: 12/29/2019 12:30 Test Name Code Test Result Test Units Test Ref Rang e IRON 2498-4 53 ug/dL L=45 H=182 TRANSFERRIN1 3034-6 232 mg/dL L=203 H=362 IBCT 2500-7 325 ug/dL L=250 H=450 %SAT 2502-3 16 % L=20 H=55 CBC - Collect Date/Time: 12:30 Test Name Code Test Result Test Units Test Ref Rang e WBC 6690-2 5.5 K/uL L=4.5 H=11.0 RBC 789-8 3.7 M/uL L=4.6 H=6.0 HEMOGLOBIN 718-7 11.4 g/dL L=14.0 H=18.0 HEMATOCRIT 4544-3 35.4 % L=41.0 H=53.0 MCV 787-2 94.9 fL L=80.0 H=100 MCH 785-6 30.6 pg L=25.0 H=34.0 MCHC 786-4 32.2 g/dl L=31.0 H=37.0 RDW 788-0 12.3 % L=11.0 H=14.5 PLATELET 777-3 195 K/uL L=150 H=450 #NEUT 751-8 3.52 K/ul L=1.50 H=7.20 %NEUT 770-8 64.5 % L=40.0 H=79.0 %LYMPH 736-9 19.8 % L=20.0 H=40.0 %MONO 5905-5 8.3 % L=1.0 H=10.0 %EOSIN 713-8 6.80 % L=1.00 H=4.00 %BASO 706-2 0.60 % L=0.00 H=1.00 %IG 15173-1 0.00 % L=0.00 H=8.00 MANUAL DIFF 30019-2 NOT INDICATED N/A RBC MORPH 6742-1 NOT INDICATED N/A PLT ESTIMATE 00384-2 NOT INDICATED N/A RETICULOCYTE COUNT - Collect Date/Time: 12/29/2019 12:30 Test Name Code Test Result Test Units Test Ref Rang e RETIC 08350-4 1.6 % L=0.5 H=2.0 RETIC# 36453-1 0.06 10^6/uL L=0.01 H=0.09 IRF 94527-6 18 % L=2 H=15 Active Medications Medication Code Dose Units Frequency Route Modificatio n Start Date/Time amLODIPine Besylate 5MG Oral Tablet 591631 5 MILLIGRAMS DAILY ORAL 023 12:19 Prescription Detail 5 MILLIGRAMS ORAL DAILY Aspirin 325MG Oral Tablet 437424 325 MILLIGRAMS DAILY ORAL 023 12:19 Prescription Detail 325 MILLIGRAMS ORAL DAILY Atorvastatin Calcium 80MG Oral Tablet 313443 80 MILLIGRAMS EVENING ORAL 023 12:19 Prescription Detail 80 MILLIGRAMS ORAL EVENING Bisoprolol Fumarate 5MG Oral Tablet 497148 5 MILLIGRAMS DAILY ORAL 023 12:19 Prescription Detail 5 MILLIGRAMS ORAL DAILY Clopidogrel 75MG Oral Tablet 942539 75 MILLIGRAMS DAILY ORAL 3 12:19 Prescription Detail 75 MILLIGRAMS ORAL DAILY Diclofenac Sodium 50MG Oral Tablet, Enteric Coated 782629 50 MILLIGRAMS NEEDED DAILY ORAL 08/26/2022 12:19 Prescription Detail 50 MILLIGRAMS ORAL NEEDED DAILY Ezetimibe 10 MG Oral Tablet 071647 10 MG DAILY ORAL 08/27/19 12:19 Prescription Detail 10 MG ORAL DAILY Loratadine 10MG Oral Tablet 312998 10 MILLIGRAMS NEEDED DAILY ORAL 08/26/2022 12:19 Prescription Detail 10 MILLIGRAMS ORAL NEEDED DAILY Losartan Potassium 100MG Oral Tablet 012115 100 MILLIGRAMS DAILY ORAL 023 12:19 Prescription Detail 100 MILLIGRAMS ORAL DAILY Pantoprazole Sodium 40MG Oral Tablet, Enteric Coated 740101 40 MILLIGRAMS DAILY ORAL 08/05 12:19 Prescription Detail 40 MILLIGRAMS ORAL DAILY Prazosin HCl 5MG Oral Capsule 565097 5 MILLIGRAMS EVENING ORAL 12:19 Prescription Detail 5 MILLIGRAMS ORAL EVENING Vardenafil HCl 20MG Oral Tablet 793395 20 MILLIGRAMS NEEDED DAILY ORAL 08/26/2022 12:19 Prescription Detail 20 MILLIGRAMS ORAL NEEDED DAILY Triamcinolone Acetonide 0.1% Topical application Cream [id number] 1 APPLICATION NEEDED 2X DAILY TOPICAL 08/26/2022 12:15 Prescription Detail 1 APPLICATION TOPICAL NEEDED 2X DAILY FOR ITCHY SKIN IN GROIN Medications Administered During Visit Unknown or Not Available. Encounters Encounter Diagnosis Diagnosis Code Start Date Anemia [id number] 12/29/2019 Social History Smoking Status Code Start Date End Date Never smoker [id number] Patient Decision Aids Unknown or Not Available. Discharge Instructions You were admitted to [facility] on 12/29/2019 12:29 with a principal diagnosis of Anemia, unspecified You had the following tests done:CBCIRON & TIBC PANELRETICULOCYTE COUNT You were discharged from [facility] on 12/29/2019 12:29 Should you have any questions prior to discharge, please contact a member of your healthcare team. If you have left the hospital and have any questions, please contact your primary care physician. Chief Complaint and Reason For Visit Chief Complaint Date of Onset D649 Function Status Unknown or Not Available. Plan of Care Unknown or Not Available. Referral/Transition of Care Unknown or Not Available.
--- OUTSIDE RECORDS SUMMARY | 2023-03-20 16:58 | XMS_ITS | CCD ---
Author Name Unknown Address [address] [place] [address] [place] [phone] Organization Unknown Address [address] [place] [address] [place], [place] [id number] Care Team Providers Care Eyewear Manufacturing Supervisor Name Role Phone CADOFF GUSTAVO WHITE MD Attending Physician [phone] Vital Signs Unknown or Not Available. Allergies Allergy Code Allergy Type Reaction Status No Known Allergies 0 No known allergies Active Procedures Procedure Code Procedure Type Date CT Abdomen & Pelvis w/o Contrst 1/> Body Regions 54862 CPT 05/02/2022 History of Immunizations Unknown or Not Available. 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 Obstructive sleep apnea 86643066 A ctive Urinary tract infection 06402187 10/31/2019 A ctive Urticaria 643765876 10/19/2020 Active Results BASIC METABOLIC PANEL - Antony ect Date/Time: 05/02/2022 09:23 Test Name Code Test Result Test Units Test Ref Rang e GLUCOSE 2345-7 112 mg/dL L=74 H=106 BUN 3094-0 20 mg/dL L=8 H=26 CREATININE 2160-0 1.1 mg/dL L=0.7 H=1.3 SODIUM 2951-2 137 mEQ/L L=136 H=144 POTASSIUM 2823-3 3.8 mEQ/L L=3.5 H=5.1 CHLORIDE 2075-0 105 mEQ/L L=101 H=111 CO2 2028-9 24 mEQ/L L=22 H=32 CALCIUM 97834-6 9.6 mg/dL L=8.6 H=10.0 ANION GAP 29756-8 8 mEq/L L=7 H=16 AGE 36386-8 76 years eGFR NonAA 44092-6 65 eGFR [place] [address]-5 79 PSA DIAGNOSTIC ([facility]) - Colle ct Date/Time: 05/02/2022 09:23 Test Name Code Test Result Test Units Test Ref Rang e PSA-DIAG 2857-1 4.78 ng/ml L=0.00 H=4.00 Active Medications Medication Code Dose Units Frequency Route Modificatio n Start Date/Time amLODIPine Besylate 5MG Oral Tablet 594609 5 MILLIGRAMS DAILY ORAL 023 12:19 Prescription Detail 5 MILLIGRAMS ORAL DAILY Aspirin 325MG Oral Tablet 186099 325 MILLIGRAMS DAILY ORAL 023 12:19 Prescription Detail 325 MILLIGRAMS ORAL DAILY Atorvastatin Calcium 80MG Oral Tablet 306908 80 MILLIGRAMS EVENING ORAL 023 12:19 Prescription Detail 80 MILLIGRAMS ORAL EVENING Bisoprolol Fumarate 5MG Oral Tablet 971688 5 MILLIGRAMS DAILY ORAL 023 12:19 Prescription Detail 5 MILLIGRAMS ORAL DAILY Clopidogrel 75MG Oral Tablet 544148 75 MILLIGRAMS DAILY ORAL 12:19 Prescription Detail 75 MILLIGRAMS ORAL DAILY Diclofenac Sodium 50MG Oral Tablet, Enteric Coated 855646 50 MILLIGRAMS NEEDED DAILY ORAL 08/26/2022 12:19 Prescription Detail 50 MILLIGRAMS ORAL NEEDED DAILY Ezetimibe 10 MG Oral Tablet 384963 10 MG DAILY ORAL 08/27/19 12:19 Prescription Detail 10 MG ORAL DAILY Loratadine 10MG Oral Tablet 182987 10 MILLIGRAMS NEEDED DAILY ORAL 08/26/2022 12:19 Prescription Detail 10 MILLIGRAMS ORAL NEEDED DAILY Losartan Potassium 100MG Oral Tablet 537774 100 MILLIGRAMS DAILY ORAL 023 12:19 Prescription Detail 100 MILLIGRAMS ORAL DAILY Pantoprazole Sodium 40MG Oral Tablet, Enteric Coated 006571 40 MILLIGRAMS DAILY ORAL 08/05 12:19 Prescription Detail 40 MILLIGRAMS ORAL DAILY Prazosin HCl 5MG Oral Capsule 554675 5 MILLIGRAMS EVENING ORAL 3 12:19 Prescription Detail 5 MILLIGRAMS ORAL EVENING Vardenafil HCl 20MG Oral Tablet 608709 20 MILLIGRAMS NEEDED DAILY ORAL 08/26/2022 12:19 Prescription Detail 20 MILLIGRAMS ORAL NEEDED DAILY Triamcinolone Acetonide 0.1% Topical application Cream 7798466 1 APPLICATION NEEDED 2X DAILY TOPICAL 08/26/2022 12:15 Prescription Detail 1 APPLICATION TOPICAL NEEDED 2X DAILY FOR ITCHY SKIN IN GROIN Medications Administered During Visit Unknown or Not Available. Encounters Encounter Diagnosis Diagnosis Code Start Date Hematuria, unspecified R319 3 Social History Smoking Status Code Start Date End Date Never smoker [id number] Patient Decision Aids Unknown or Not Available. Discharge Instructions You were admitted to [facility] on 05/02/2022 09:17 with a principal diagnosis of Hematuria, unspecified You had the following procedures done:CT Abdomen & Pelvis w/o Contrst 1/> Body Regions You had the following tests done:BASIC METABOLIC PANELPSA DIAGNOSTIC ([facility]) You were discharged from [facility] on 05/02/2022 09:17 Should you have any questions prior to discharge, please contact a member of your healthcare team. If you have left the hospital and have any questions, please contact your primary care physician. Chief Complaint and Reason For Visit Chief Complaint Date of Onset R319 Function Status Unknown or Not Available. Plan of Care Unknown or Not Available. Referral/Transition of Care Unknown or Not Available.
--- OUTSIDE RECORDS SUMMARY | 2023-03-20 16:58 | XMS_ITS | CCD ---
Author Name Unknown Address [address] [place] [address] [place] [id number] Organization Unknown Address [address] [place], [place] [address], [place] [id number] Care Team Providers Care Rollway Worker Name Role Phone TATIANA PACK, KURT Johnston, Attending Physician [phone] Vital Signs Unknown or Not Available. Allergies Allergy Code Allergy Type Reaction Status No Known Allergies 0 No known allergies Active Procedures Unknown or Not Available. History of Immunizations Unknown or Not Available. Problems Problem Code Start Date Resolved Date Status Hematuria 12293944 10/29/2019 Active Anemia 281697809 10/29/2019 Active Urinary retention 436876426 10/31/2019 Active Prostatitis 9839614 Active Left inguinal hernia 339536910 Acti ve BPH 668462237 Active HTN 99925155 Active Transurethral resection of p rostate syndrome 256606284 Active Obstructive sleep apnea 01089344 A ctive Urinary tract infection 79240837 10/31/2019 A ctive Urticaria 908533831 10/19/2020 Active Results Unknown or Not Available. Active Medications Medication Code Dose Units Frequency Route Modificatio n Start Date/Time amLODIPine Besylate 5MG Oral Tablet 400463 5 MILLIGRAMS DAILY ORAL 023 12:19 Prescription Detail 5 MILLIGRAMS ORAL DAILY Aspirin 325MG Oral Tablet 026679 325 MILLIGRAMS DAILY ORAL 023 12:19 Prescription Detail 325 MILLIGRAMS ORAL DAILY Atorvastatin Calcium 80MG Oral Tablet 227166 80 MILLIGRAMS EVENING ORAL 023 12:19 Prescription Detail 80 MILLIGRAMS ORAL EVENING Bisoprolol Fumarate 5MG Oral Tablet 222753 5 MILLIGRAMS DAILY ORAL 023 12:19 Prescription Detail 5 MILLIGRAMS ORAL DAILY Clopidogrel 75MG Oral Tablet 361200 75 MILLIGRAMS DAILY ORAL 3 12:19 Prescription Detail 75 MILLIGRAMS ORAL DAILY Diclofenac Sodium 50MG Oral Tablet, Enteric Coated 110885 50 MILLIGRAMS NEEDED DAILY ORAL 08/26/2022 12:19 Prescription Detail 50 MILLIGRAMS ORAL NEEDED DAILY Ezetimibe 10 MG Oral Tablet 566308 10 MG DAILY ORAL 08/27/19 12:19 Prescription Detail 10 MG ORAL DAILY Loratadine 10MG Oral Tablet 017372 10 MILLIGRAMS NEEDED DAILY ORAL 08/26/2022 12:19 Prescription Detail 10 MILLIGRAMS ORAL NEEDED DAILY Losartan Potassium 100MG Oral Tablet 559156 100 MILLIGRAMS DAILY ORAL 023 12:19 Prescription Detail 100 MILLIGRAMS ORAL DAILY Pantoprazole Sodium 40MG Oral Tablet, Enteric Coated 319433 40 MILLIGRAMS DAILY ORAL 08/05 12:19 Prescription Detail 40 MILLIGRAMS ORAL DAILY Prazosin HCl 5MG Oral Capsule 605701 5 MILLIGRAMS EVENING ORAL 12:19 Prescription Detail 5 MILLIGRAMS ORAL EVENING Vardenafil HCl 20MG Oral Tablet 703876 20 MILLIGRAMS NEEDED DAILY ORAL 08/26/2022 12:19 Prescription Detail 20 MILLIGRAMS ORAL NEEDED DAILY Triamcinolone Acetonide 0.1% Topical application Cream 1395226 1 APPLICATION NEEDED 2X DAILY TOPICAL 08/26/2022 12:15 Prescription Detail 1 APPLICATION TOPICAL NEEDED 2X DAILY FOR ITCHY SKIN IN GROIN Medications Administered During Visit Unknown or Not Available. Encounters Encounter Diagnosis Diagnosis Code Start Date History and physical examination, administrative [id number] 11/22/2019 Social History Smoking Status Code Start Date End Date Never smoker 113464545 Patient Decision Aids Unknown or Not Available. Discharge Instructions You were admitted to [facility] on 11/22/2019 14:33 with a principal diagnosis of Encounter for administrative examinations, unspecified You were discharged from [facility] on 11/24/2019 12:28 Should you have any questions prior to [...]
--- OUTSIDE RECORDS SUMMARY | 2023-03-20 16:58 | XMS_ITS | CCD ---
Author Name Unknown Address [address] [place] [address] [place] [phone] Organization Unknown Address [address] [place] [address] [place], [place] [phone] Care Team Providers Care Pals Specialist Name Role Phone GUSTAVO BISHOP Attending Physician [phone] GUSTAVO BISHOP Er Physician [phone] Vital Signs Vital Sign Value Unit Date/Time Recent/Initial ? BMI (Body Mass Index) 29.19 kg/m^2 10/29/2019 16: 25 Initial VS Weight Measured 192 lbs 10/29/2019 16:25 Ini tial VS Height 68 in 10/29/2019 16:25 Initial VS BSA (Body Surface Area) 2.04 m^2 10/29/2019 1 6:25 Initial VS BP Systolic 147 mmHg 10/29/2019 16:25 Initial VS BP Diastolic 70 mmHg 10/29/2019 16:25 Initia l VS Respiratory Rate 18 bpm 10/29/2019 16:25 In itial VS Heart Rate 71 bpm 10/29/2019 16:25 Initial VS O2 % BldC Oximetry 96 % 10/29/2019 16:25 Initial VS Body Temperature 97.4 degrees 10/29/2019 16:25 In itial VS BP Systolic 172 mmHg 10/29/2019 18:20 Most Re cent VS BP Diastolic 81 mmHg 10/29/2019 18:20 Most R ecent VS Respiratory Rate 17 bpm 10/29/2019 18:[address] Recent VS Heart Rate 68 bpm 10/29/2019 18:20 Most Rec ent VS O2 % BldC Oximetry 98 % 10/29/2019 18:20 Most Recent VS Allergies Allergy Code Allergy Type Reaction Status No Known Allergies 0 No known allergies Active Procedures Procedure Code Procedure Type Date CULTURE URINE 577890089 SNOMED CT 10/29/2019 History of Immunizations Unknown or Not Available. Problems Problem Code Start Date Resolved Date Status Hematuria 35087285 10/29/2019 Active Anemia 703274600 10/29/2019 Active Urinary retention 786376246 10/31/2019 Active Prostatitis 3915023 Active Left inguinal hernia 850608930 Acti ve BPH 728127014 Active HTN 41819845 Active Transurethral resection of p rostate syndrome 146508670 Active Obstructive sleep apnea 17290820 A ctive Urinary tract infection 30078350 10/31/2019 A ctive Urticaria 937490179 10/19/2020 Active Results CBC - Collect Date/Time: 16:48 Test Name Code Test Result Test Units Test Ref Rang e WBC 6690-2 7.7 K/uL L=4.5 H=11.0 RBC 789-8 3.7 M/uL L=4.6 H=6.0 HEMOGLOBIN 718-7 11.7 g/dL L=14.0 H=18.0 HEMATOCRIT 4544-3 34.7 % L=41.0 H=53.0 MCV 787-2 93.3 fL L=80.0 H=100 MCH 785-6 31.5 pg L=25.0 H=34.0 MCHC 786-4 33.7 g/dl L=31.0 H=37.0 RDW 788-0 11.6 % L=11.0 H=14.5 PLATELET 777-3 233 K/uL L=150 H=450 #NEUT 751-8 5.92 K/ul L=1.50 H=7.20 %NEUT 770-8 76.9 % L=40.0 H=79.0 %LYMPH 736-9 11.4 % L=20.0 H=40.0 %MONO 5905-5 7.9 % L=1.0 H=10.0 %EOSIN 713-8 3.00 % L=1.00 H=4.00 %BASO 706-2 0.30 % L=0.00 H=1.00 %IG 99069-0 0.50 % L=0.00 H=8.00 MANUAL DIFF 33181-6 NOT INDICATED N/A RBC MORPH 6742-1 NOT INDICATED N/A PLT ESTIMATE 66660-9 NOT INDICATED N/A URINALYSIS - Collect Date/Ti me: 10/29/2019 16:55 Test Name Code Test Result Test Units Test Ref Rang e COLOR 86835-4 RED N/A CLARITY 84776-0 CLEAR N/A GLUCOSE 12108-8 NEGATIVE N/A BILIRUBIN 15595-1 2+ N/A KETONE 19805-1 TRACE N/A SP GRAVITY 10158-9 1.020 N/[place] [address]-9 7.0 N/A PROTEIN 93405-9 3+ N/A UROBILINOGEN 21582-5 1.0 N/A NITRITE 43198-6 POSITIVE N/A BLOOD 24172-8 3+ N/A LEUKOCYTES 76241-5 2+ N/A MICROSCOPIC 07572-6 SEE BELOW N/A WBC 5821-4 TNTC N/A RBC 46106-1 TNTC N/A EPI CELLS 50024-9 SEE BELOW N/A RENAL TUBULAR 93737-4 NONE SEEN N/A NORMAL: NON E SEEN SQUAMOUS 94524-0 RARE N/A NORMAL: NONE S EEN TRANSITIONAL 8249-5 NONE SEEN N/A NORMAL: NONE SEEN BACTERIA 5769-5 FEW N/A CRYSTALS 51558-7 NONE SEEN N/A MUCOUS 8247-9 NONE SEEN N/A TRICHOMONAS 20344-7 NONE SEEN N/A YEAST 74661-7 NONE SEEN N/A CASTS 9439-1 NONE SEEN N/A CULTURE 40339-7 PENDING N/A Spec Source: 33887-1 Cath N/A Active Medications Unknown or Not Available. Medications Administered During Visit Unknown or Not Available. Encounters Encounter Diagnosis Diagnosis Code Start Date Other mechanical complicatio n of other urinary devices and implants, initial encounter [id number] 10/29/2019 Social History Smoking Status Code Start Date End Date Never smoker [id number] Patient Decision Aids Unknown or Not Available. Discharge Instructions You were admitted to [facility] on 10/29/2019 16:21 with a principal diagnosis of Complications of Specified Implanted Device or Graft You had the following tests done:URINALYSISCBC You were discharged from [facility] on 10/29/2019 18:40 Should you have any questions prior to discharge, please contact a member of your healthcare team. If you have left the hospital and have any questions, please contact your primary care physician. Chief Complaint and Reason For Visit Chief Complaint Date of Onset URITHRA BLOCKED Function Status Unknown or Not Available. Plan of Care Unknown or Not Available. Referral/Transition of Care Unknown or Not Available.
--- OUTSIDE RECORDS SUMMARY | 2023-03-20 16:58 | XMS_ITS | CCD ---
Author Name Unknown Address [address] [place] [address] [place] [id number] Organization Unknown Address [address] [place], [place] [address], [place] [phone] Care Team Providers Care Jukebox Route Driver Name Role Phone KARLA PABON Attending Physician [phone] Vital Signs Unknown or Not Available. Allergies Allergy Code Allergy Type Reaction Status No Known Allergies 0 No known allergies Active Procedures Procedure Code Procedure Type Date COVID-19 AB IGG SERUM [facility] 484686096 SNOMED CT History of Immunizations Unknown or Not Available. Problems Problem Code Start Date Resolved Date Status Hematuria 79821166 10/29/2019 Active Anemia 018868000 10/29/2019 Active Urinary retention 068444511 10/31/2019 Active Prostatitis 6223803 Active Left inguinal hernia 119803438 Acti ve BPH 276936447 Active HTN 03648630 Active Transurethral resection of p rostate syndrome 571416804 Active Obstructive sleep apnea 83759511 A ctive Urinary tract infection 70036569 10/31/2019 A ctive Urticaria 776008468 10/19/2020 Active Results COVID-19 AB IGG SERUM SPH - Collect Date/Time: 01/04/2020 16:08 Test Name Code Test Result Test Units Test Ref Rang e COVID-19 IGG SPH 77983-7 NON-REACTIVE N/A Active Medications Medication Code Dose Units Frequency Route Modificatio n Start Date/Time amLODIPine Besylate 5MG Oral Tablet 616950 5 MILLIGRAMS DAILY ORAL 023 12:19 Prescription Detail 5 MILLIGRAMS ORAL DAILY Aspirin 325MG Oral Tablet 891970 325 MILLIGRAMS DAILY ORAL 023 12:19 Prescription Detail 325 MILLIGRAMS ORAL DAILY Atorvastatin Calcium 80MG Oral Tablet 256582 80 MILLIGRAMS EVENING ORAL 023 12:19 Prescription Detail 80 MILLIGRAMS ORAL EVENING Bisoprolol Fumarate 5MG Oral Tablet 073747 5 MILLIGRAMS DAILY ORAL 023 12:19 Prescription Detail 5 MILLIGRAMS ORAL DAILY Clopidogrel 75MG Oral Tablet 759423 75 MILLIGRAMS DAILY ORAL 12:19 Prescription Detail 75 MILLIGRAMS ORAL DAILY Diclofenac Sodium 50MG Oral Tablet, Enteric Coated 818765 50 MILLIGRAMS NEEDED DAILY ORAL 08/26/2022 12:19 Prescription Detail 50 MILLIGRAMS ORAL NEEDED DAILY Ezetimibe 10 MG Oral Tablet 101906 10 MG DAILY ORAL 08/27/19 12:19 Prescription Detail 10 MG ORAL DAILY Loratadine 10MG Oral Tablet 486297 10 MILLIGRAMS NEEDED DAILY ORAL 08/26/2022 12:19 Prescription Detail 10 MILLIGRAMS ORAL NEEDED DAILY Losartan Potassium 100MG Oral Tablet 128003 100 MILLIGRAMS DAILY ORAL 023 12:19 Prescription Detail 100 MILLIGRAMS ORAL DAILY Pantoprazole Sodium 40MG Oral Tablet, Enteric Coated 252811 40 MILLIGRAMS DAILY ORAL 08/05 12:19 Prescription Detail 40 MILLIGRAMS ORAL DAILY Prazosin HCl 5MG Oral Capsule 979591 5 MILLIGRAMS EVENING ORAL 12:19 Prescription Detail 5 MILLIGRAMS ORAL EVENING Vardenafil HCl 20MG Oral Tablet 197130 20 MILLIGRAMS NEEDED DAILY ORAL 08/26/2022 12:19 Prescription Detail 20 MILLIGRAMS ORAL NEEDED DAILY Triamcinolone Acetonide 0.1% Topical application Cream 5496178 1 APPLICATION NEEDED 2X DAILY TOPICAL 08/26/2022 12:15 Prescription Detail 1 APPLICATION TOPICAL NEEDED 2X DAILY FOR ITCHY SKIN IN GROIN Medications Administered During Visit Unknown or Not Available. Encounters Encounter Diagnosis Diagnosis Code Start Date Viral screening [id number] 01/04/2020 Social History Smoking Status Code Start Date End Date Never smoker 098509056 Patient Decision Aids Unknown or Not Available. Discharge Instructions You were admitted to [facility] on 01/04/2020 16:04 with a principal diagnosis of Encounter for screening for other viral diseases You had the following tests done:COVID-19 AB IGG SERUM SPH You were discharged from [facility] on 01/04/2020 16:04 Should you have any questions prior to discharge, please contact a member of your healthcare team. If you have left the hospital and have any questions, please contact your primary care physician. Chief Complaint and Reason For Visit Chief Complaint Date of Onset Z1159 Function Status Unknown or Not Available. Plan of Care Unknown or Not Available. Referral/Transition of Care Unknown or Not Available.
--- OUTSIDE RECORDS SUMMARY | 2023-03-20 16:58 | XMS_ITS | CCD ---
Author Name Unknown Address [address] [place] [address] [place] [id number] Organization Unknown Address [address] [place], [place] [address], [place] [phone] Care Team Providers Care Engine Wiper Name Role Phone MARIE MULLINS Attending Physician [phone] Vital Signs Unknown or Not Available. Allergies Allergy Code Allergy Type Reaction Status No Known Allergies 0 No known allergies Active Procedures Unknown or Not Available. History of Immunizations Unknown or Not Available. Problems Problem Code Start Date Resolved Date Status Hematuria 55653338 10/29/2019 Active Anemia 357874237 10/29/2019 Active Urinary retention 127293954 10/31/2019 Active Prostatitis 8668663 Active Left inguinal hernia 500747254 Acti ve BPH 725247403 Active HTN 60822638 Active Transurethral resection of p rostate syndrome 687868428 Active Obstructive sleep apnea 01296676 A ctive Urinary tract infection 38693163 10/31/2019 A ctive Urticaria 612835686 10/19/2020 Active Results COVID-19 [facility] - Collect Date/Time: 02/08/2020 15:17 Test Name Code Test Result Test Units Test Ref Rang e COVID-19 29252-6 NEGATIVE N/A Active Medications Medication Code Dose Units Frequency Route Modificatio n Start Date/Time amLODIPine Besylate 5MG Oral Tablet 188358 5 MILLIGRAMS DAILY ORAL 023 12:19 Prescription Detail 5 MILLIGRAMS ORAL DAILY Aspirin 325MG Oral Tablet 278258 325 MILLIGRAMS DAILY ORAL 023 12:19 Prescription Detail 325 MILLIGRAMS ORAL DAILY Atorvastatin Calcium 80MG Oral Tablet 229809 80 MILLIGRAMS EVENING ORAL 023 12:19 Prescription Detail 80 MILLIGRAMS ORAL EVENING Bisoprolol Fumarate 5MG Oral Tablet 055112 5 MILLIGRAMS DAILY ORAL 023 12:19 Prescription Detail 5 MILLIGRAMS ORAL DAILY Clopidogrel 75MG Oral Tablet 771159 75 MILLIGRAMS DAILY ORAL 12:19 Prescription Detail 75 MILLIGRAMS ORAL DAILY Diclofenac Sodium 50MG Oral Tablet, Enteric Coated 516149 50 MILLIGRAMS NEEDED DAILY ORAL 08/26/2022 12:19 Prescription Detail 50 MILLIGRAMS ORAL NEEDED DAILY Ezetimibe 10 MG Oral Tablet 401748 10 MG DAILY ORAL 08/27/19 12:19 Prescription Detail 10 MG ORAL DAILY Loratadine 10MG Oral Tablet 738520 10 MILLIGRAMS NEEDED DAILY ORAL 08/26/2022 12:19 Prescription Detail 10 MILLIGRAMS ORAL NEEDED DAILY Losartan Potassium 100MG Oral Tablet 378614 100 MILLIGRAMS DAILY ORAL 023 12:19 Prescription Detail 100 MILLIGRAMS ORAL DAILY Pantoprazole Sodium 40MG Oral Tablet, Enteric Coated 059657 40 MILLIGRAMS DAILY ORAL 08/05 12:19 Prescription Detail 40 MILLIGRAMS ORAL DAILY Prazosin HCl 5MG Oral Capsule 533863 5 MILLIGRAMS EVENING ORAL 12:19 Prescription Detail 5 MILLIGRAMS ORAL EVENING Vardenafil HCl 20MG Oral Tablet 865472 20 MILLIGRAMS NEEDED DAILY ORAL 08/26/2022 12:19 Prescription Detail 20 MILLIGRAMS ORAL NEEDED DAILY Triamcinolone Acetonide 0.1% Topical application Cream 4587141 1 APPLICATION NEEDED 2X DAILY TOPICAL 08/26/2022 12:15 Prescription Detail 1 APPLICATION TOPICAL NEEDED 2X DAILY FOR ITCHY SKIN IN GROIN Medications Administered During Visit Unknown or Not Available. Encounters Encounter Diagnosis Diagnosis Code Start Date Exposure to communicable disease [id number] 02/08/2020 Social History Smoking Status Code Start Date End Date Never smoker 827105845 Patient Decision Aids Unknown or Not Available. Discharge Instructions You were admitted to [facility] on 02/08/2020 15:14 with a principal diagnosis of Contact with and (suspected) exposure to other viral communicable diseases You had the following tests done:COVID-19 [facility] You were discharged from [facility] on 02/08/2020 15:15 Should you have any questions prior to discharge, please contact a member of your healthcare team. If you have left the hospital and have any questions, please contact your primary care physician. Chief Complaint and Reason For Visit Chief Complaint Date of Onset COVID- SYMPTOMATIC: COUGH Function Status Unknown or Not Available. Plan of Care Unknown or Not Available. Referral/Transition of Care Unknown or Not Available.
--- OUTSIDE RECORDS SUMMARY | 2023-03-20 16:58 | XMS_ITS | CCD ---
Author Name Unknown Address [address] [place] [address] [place], [place] [id number] Organization Unknown Address [address] [place], [place] [address], [place] [id number] Care Team Providers Care Software Sales Representative Name Role Phone JUANITA GUERRERO Attending Physician [phone] Vital Signs Unknown or Not Available. Allergies Allergy Code Allergy Type Reaction Status No Known Allergies 0 No known allergies Active Procedures Unknown or Not Available. History of Immunizations Unknown or Not Available. 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 Active Medications Medication Code Dose Units Frequency Route Modificatio n Start Date/Time amLODIPine Besylate 5MG Oral Tablet 956858 5 MILLIGRAMS DAILY ORAL 023 12:19 Prescription Detail 5 MILLIGRAMS ORAL DAILY Aspirin 325MG Oral Tablet 067587 325 MILLIGRAMS DAILY ORAL 023 12:19 Prescription Detail 325 MILLIGRAMS ORAL DAILY Atorvastatin Calcium 80MG Oral Tablet 777985 80 MILLIGRAMS EVENING ORAL 023 12:19 Prescription Detail 80 MILLIGRAMS ORAL EVENING Bisoprolol Fumarate 5MG Oral Tablet 580986 5 MILLIGRAMS DAILY ORAL 023 12:19 Prescription Detail 5 MILLIGRAMS ORAL DAILY Clopidogrel 75MG Oral Tablet 221937 75 MILLIGRAMS DAILY ORAL 3 12:19 Prescription Detail 75 MILLIGRAMS ORAL DAILY Diclofenac Sodium 50MG Oral Tablet, Enteric Coated 588421 50 MILLIGRAMS NEEDED DAILY ORAL 08/26/2022 12:19 Prescription Detail 50 MILLIGRAMS ORAL NEEDED DAILY Ezetimibe 10 MG Oral Tablet 800389 10 MG DAILY ORAL 08/27/19 12:19 Prescription Detail 10 MG ORAL DAILY Loratadine 10MG Oral Tablet 861973 10 MILLIGRAMS NEEDED DAILY ORAL 08/26/2022 12:19 Prescription Detail 10 MILLIGRAMS ORAL NEEDED DAILY Losartan Potassium 100MG Oral Tablet 942404 100 MILLIGRAMS DAILY ORAL 023 12:19 Prescription Detail 100 MILLIGRAMS ORAL DAILY Pantoprazole Sodium 40MG Oral Tablet, Enteric Coated 537062 40 MILLIGRAMS DAILY ORAL 08/05 12:19 Prescription Detail 40 MILLIGRAMS ORAL DAILY Prazosin HCl 5MG Oral Capsule 933229 5 MILLIGRAMS EVENING ORAL 12:19 Prescription Detail 5 MILLIGRAMS ORAL EVENING Vardenafil HCl 20MG Oral Tablet 749736 20 MILLIGRAMS NEEDED DAILY ORAL 08/26/2022 12:19 Prescription Detail 20 MILLIGRAMS ORAL NEEDED DAILY Triamcinolone Acetonide 0.1% Topical application Cream 0542185 1 APPLICATION NEEDED 2X DAILY TOPICAL 08/26/2022 12:15 Prescription Detail 1 APPLICATION TOPICAL NEEDED 2X DAILY FOR ITCHY SKIN IN GROIN Medications Administered During Visit Unknown or Not Available. Encounters Encounter Diagnosis Diagnosis Code Start Date Pain in right hip [id number] 01/26/2020 Social History Smoking Status Code Start Date End Date Never smoker [id number] Patient Decision Aids Unknown or Not Available. Discharge Instructions You were admitted to [facility] on 01/26/2020 10:15 with a principal diagnosis of Pain in right hip You were discharged from [facility] on 03/28/2020 18:00 Should you have any questions prior to discharge, please contact a member of your healthcare team. If you have left the hospital and have any questions, please contact your primary care physician. Chief Complaint and Reason For Visit Chief Complaint Date of Onset Physical therapy 01/25/2020 Function Status Unknown or Not Available. Plan of Care Unknown or Not Available. Referral/Transition of Care Unknown or Not Available.
--- OUTSIDE RECORDS SUMMARY | 2023-03-20 16:59 | XMS_ITS | CCD ---
Author Name Unknown Address [address] [place] [address] [place], [place] [phone] Organization Unknown Address [address] [place], [place] [address], [place] [phone] Care Team Providers Care Honey Extractor Name Role Phone FATMATA ALBAREY Attending Physician [phone] Vital Signs Unknown or Not Available. Allergies Allergy Code Allergy Type Reaction Status No Known Allergies 0 No known allergies Active Procedures Unknown or Not Available. History of Immunizations Unknown or Not Available. Problems Problem Code Start Date Resolved Date Status Hematuria 85630782 10/29/2019 Active Anemia 967327986 10/29/2019 Active Urinary retention 941374950 10/31/2019 Active Prostatitis 6233554 Active Left inguinal hernia 523294495 Acti ve BPH 878629598 Active HTN 02189488 Active Transurethral resection of p rostate syndrome 873778256 Active Obstructive sleep apnea 68517219 A ctive Urinary tract infection 16104994 10/31/2019 A ctive Urticaria 044023308 10/19/2020 Active Results COVID-19 SPH - Collect Date/ Time: 09/27/2019 09:50 Test Name Code Test Result Test Units Test Ref Rang e COVID-19 VIRAL RNA: 49769-3 NEGATIVE N/A COVID-19 PCR REF LAB 32622-8 NOT STEFFANY N/A SEND TO PHARMACY? X0302 YES N/A SEND TO IF? X0212 YES N/A STATE REPORTABLE BIO 27307-6 NONE N/A Active Medications Medication Code Dose Units Frequency Route Modificatio n Start Date/Time amLODIPine Besylate 5MG Oral Tablet 170421 5 MILLIGRAMS DAILY ORAL 023 12:19 Prescription Detail 5 MILLIGRAMS ORAL DAILY Aspirin 325MG Oral Tablet 039991 325 MILLIGRAMS DAILY ORAL 023 12:19 Prescription Detail 325 MILLIGRAMS ORAL DAILY Atorvastatin Calcium 80MG Oral Tablet 880904 80 MILLIGRAMS EVENING ORAL 023 12:19 Prescription Detail 80 MILLIGRAMS ORAL EVENING Bisoprolol Fumarate 5MG Oral Tablet 768344 5 MILLIGRAMS DAILY ORAL 023 12:19 Prescription Detail 5 MILLIGRAMS ORAL DAILY Clopidogrel 75MG Oral Tablet 306976 75 MILLIGRAMS DAILY ORAL 3 12:19 Prescription Detail 75 MILLIGRAMS ORAL DAILY Diclofenac Sodium 50MG Oral Tablet, Enteric Coated 638250 50 MILLIGRAMS NEEDED DAILY ORAL 08/26/2022 12:19 Prescription Detail 50 MILLIGRAMS ORAL NEEDED DAILY Ezetimibe 10 MG Oral Tablet 914533 10 MG DAILY ORAL 08/27/19 12:19 Prescription Detail 10 MG ORAL DAILY Loratadine 10MG Oral Tablet 488331 10 MILLIGRAMS NEEDED DAILY ORAL 08/26/2022 12:19 Prescription Detail 10 MILLIGRAMS ORAL NEEDED DAILY Losartan Potassium 100MG Oral Tablet 639409 100 MILLIGRAMS DAILY ORAL 023 12:19 Prescription Detail 100 MILLIGRAMS ORAL DAILY Pantoprazole Sodium 40MG Oral Tablet, Enteric Coated 296968 40 MILLIGRAMS DAILY ORAL 08/05 12:19 Prescription Detail 40 MILLIGRAMS ORAL DAILY Prazosin HCl 5MG Oral Capsule 110502 5 MILLIGRAMS EVENING ORAL 3 12:19 Prescription Detail 5 MILLIGRAMS ORAL EVENING Vardenafil HCl 20MG Oral Tablet 799135 20 MILLIGRAMS NEEDED DAILY ORAL 08/26/2022 12:19 Prescription Detail 20 MILLIGRAMS ORAL NEEDED DAILY Triamcinolone Acetonide 0.1% Topical application Cream 9797767 1 APPLICATION NEEDED 2X DAILY TOPICAL 08/26/2022 12:15 Prescription Detail 1 APPLICATION TOPICAL NEEDED 2X DAILY FOR ITCHY SKIN IN GROIN Medications Administered During Visit Unknown or Not Available. Encounters Encounter Diagnosis Diagnosis Code Start Date Viral screening [id number] 09/27/2019 Social History Smoking Status Code Start Date End Date Never smoker 172612967 Patient Decision Aids Unknown or Not Available. Discharge Instructions You were admitted to [facility] on 09/27/2019 11:10 with a principal diagnosis of Encounter for screening for other viral diseases You had the following tests done:COVID-19 SPH You were discharged from [facility] on 09/27/2019 11:11 Should you have any questions prior to discharge, please contact a member of your healthcare team. If you have left the hospital and have any questions, please contact your primary care physician. Chief Complaint and Reason For Visit Chief Complaint Date of Onset PRE OP COVID Function Status Unknown or Not Available. Plan of Care Unknown or Not Available. Referral/Transition of Care Unknown or Not Available.
--- OUTSIDE RECORDS SUMMARY | 2023-03-20 16:59 | XMS_ITS | CCD ---
Author Name Unknown Address [address] [place] [address] [place], [place] [id number] Organization Unknown Address [address] [place], [place] [address], [place] [phone] Care Team Providers Care Coal Hiker Name Role Phone MAUREENBILLEMMA Attending Physician [phone] Vital Signs Unknown or Not Available. Allergies Allergy Code Allergy Type Reaction Status No Known Allergies 0 No known allergies Active Procedures Unknown or Not Available. History of Immunizations Unknown or Not Available. Problems Problem Code Start Date Resolved Date Status Hematuria 81460832 10/29/2019 Active Anemia 770312929 10/29/2019 Active Urinary retention 934531345 10/31/2019 Active Prostatitis 6836295 Active Left inguinal hernia 191542233 Acti ve BPH 673327893 Active HTN 97700209 Active Transurethral resection of p rostate syndrome 387941001 Active Obstructive sleep apnea 55813285 A ctive Urinary tract infection 21392171 10/31/2019 A ctive Urticaria 699064454 10/19/2020 Active Results COVID-19 SPH - Collect Date/ Time: 10/16/2019 10:47 Test Name Code Test Result Test Units Test Ref Rang e COVID-19 VIRAL RNA: 97251-0 NEGATIVE N/A COVID-19 PCR REF LAB 71486-0 NOT STEFFANY N/A SEND TO PHARMACY? X0302 NO N/A SEND TO IF? X0212 NO N/A STATE REPORTABLE BIO 58905-4 NONE N/A Active Medications Medication Code Dose Units Frequency Route Modificatio n Start Date/Time amLODIPine Besylate 5MG Oral Tablet 644933 5 MILLIGRAMS DAILY ORAL 023 12:19 Prescription Detail 5 MILLIGRAMS ORAL DAILY Aspirin 325MG Oral Tablet 179566 325 MILLIGRAMS DAILY ORAL 023 12:19 Prescription Detail 325 MILLIGRAMS ORAL DAILY Atorvastatin Calcium 80MG Oral Tablet 098970 80 MILLIGRAMS EVENING ORAL 023 12:19 Prescription Detail 80 MILLIGRAMS ORAL EVENING Bisoprolol Fumarate 5MG Oral Tablet 446890 5 MILLIGRAMS DAILY ORAL 023 12:19 Prescription Detail 5 MILLIGRAMS ORAL DAILY Clopidogrel 75MG Oral Tablet 412405 75 MILLIGRAMS DAILY ORAL 3 12:19 Prescription Detail 75 MILLIGRAMS ORAL DAILY Diclofenac Sodium 50MG Oral Tablet, Enteric Coated 783695 50 MILLIGRAMS NEEDED DAILY ORAL 08/26/2022 12:19 Prescription Detail 50 MILLIGRAMS ORAL NEEDED DAILY Ezetimibe 10 MG Oral Tablet 811639 10 MG DAILY ORAL 08/27/19 12:19 Prescription Detail 10 MG ORAL DAILY Loratadine 10MG Oral Tablet 471327 10 MILLIGRAMS NEEDED DAILY ORAL 08/26/2022 12:19 Prescription Detail 10 MILLIGRAMS ORAL NEEDED DAILY Losartan Potassium 100MG Oral Tablet 759557 100 MILLIGRAMS DAILY ORAL 023 12:19 Prescription Detail 100 MILLIGRAMS ORAL DAILY Pantoprazole Sodium 40MG Oral Tablet, Enteric Coated 639874 40 MILLIGRAMS DAILY ORAL 08/05 12:19 Prescription Detail 40 MILLIGRAMS ORAL DAILY Prazosin HCl 5MG Oral Capsule 191335 5 MILLIGRAMS EVENING ORAL 3 12:19 Prescription Detail 5 MILLIGRAMS ORAL EVENING Vardenafil HCl 20MG Oral Tablet 704523 20 MILLIGRAMS NEEDED DAILY ORAL 08/26/2022 12:19 Prescription Detail 20 MILLIGRAMS ORAL NEEDED DAILY Triamcinolone Acetonide 0.1% Topical application Cream 3361807 1 APPLICATION NEEDED 2X DAILY TOPICAL 08/26/2022 12:15 Prescription Detail 1 APPLICATION TOPICAL NEEDED 2X DAILY FOR ITCHY SKIN IN GROIN Medications Administered During Visit Unknown or Not Available. Encounters Encounter Diagnosis Diagnosis Code Start Date Viral screening [id number] 10/16/2019 Social History Smoking Status Code Start Date End Date Never smoker 861439608 Patient Decision Aids Unknown or Not Available. Discharge Instructions You were admitted to [facility] on 10/16/2019 11:35 with a principal diagnosis of Encounter for screening for other viral diseases You had the following tests done:COVID-19 SPH You were discharged from [facility] on 10/16/2019 11:35 Should you have any questions prior to [...]
--- OUTSIDE RECORDS SUMMARY | 2023-03-20 16:59 | XMS_ITS | CCD ---
Author Name Unknown Address [address] [place] [address] [place] [id number] Organization Unknown Address [address] [place], [place] [address], [place] [id number] Care Team Providers Care Paint Pourer Name Role Phone MCKARLA VALENTE Attending Physician [phone] Vital Signs Unknown or Not Available. Allergies Allergy Code Allergy Type Reaction Status No Known Allergies 0 No known allergies Active Procedures Procedure Code Procedure Type Date PSA SCREEN (TOTAL PSA) SPH 83505717 SNOMED CT 1 04/14/2021 History of Immunizations Unknown or Not Available. Problems Problem Code Start Date Resolved Date Status Hematuria 99680978 10/29/2019 Active Anemia 911069820 10/29/2019 Active Urinary retention 931152436 10/31/2019 Active Prostatitis 9769334 Active Left inguinal hernia 482692117 Acti ve BPH 728285128 Active HTN 30417873 Active Transurethral resection of p rostate syndrome 082020729 Active Obstructive sleep apnea 82650301 A ctive Urinary tract infection 23517642 10/31/2019 A ctive Urticaria 583141995 10/19/2020 Active Results COMP METABOLIC PANEL - [facility] ct Date/Time: 02/12/2022 09:37 Test Name Code Test Result Test Units Test Ref Rang e GLUCOSE 2345-7 108 mg/dL L=74 H=106 BUN 3094-0 24 mg/dL L=8 H=26 CREATININE 2160-0 1.2 mg/dL L=0.7 H=1.3 SODIUM 2951-2 139 mEQ/L L=136 H=144 POTASSIUM 2823-3 4.4 mEQ/L L=3.6 H=5.1 CHLORIDE 2075-0 104 mEQ/L L=101 H=111 CO2 2028-9 28 mEQ/L L=22 H=32 CALCIUM 97919-6 9.3 mg/dL L=8.9 H=10.3 TOTAL PROTEIN 2885-2 7.2 g/dL L=6.5 H=8.1 ALBUMIN 1751-7 4.1 g/dL L=3.5 H=5.0 AST 1920-8 25 U/L L=10 H=35 ALT 1742-6 30 IU/L L=17 H=63 ALKALINE PHOS 6768-6 64 IU/L L=38 H=126 TOTAL BILI 1975-2 0.8 mg/dL L=0.3 H=1.2 ANION GAP 28468-5 7 mEq/L L=7 H=16 AGE 16836-8 76 years eGFR NonAA 44508-6 59 [place]GFR [place] 77487-5 71 LIPID PANEL - Collect Date/T lorrie: 02/12/2022 09:37 Test Name Code Test Result Test Units Test Ref Rang e CHOLESTEROL 2093-3 138 mg/dL L=1 H=200 TRIGLYCERIDES 2571-8 52 mg/dL L=0 H=150 HDL 2085-9 32 mg/dL L=40 H=99 LDL 53707-4 92 mg/dL L=0 H=100 CHOL/HDL 9830-1 4.3 L=0.0 H=5.0 NON-HDL CHOLESTEROL 87842-0 106 mg/dL L=31 H=130 PSA SCREEN (TOTAL PSA) SPH - Collect Date/Time: 02/12/2022 09:37 Test Name Code Test Result Test Units Test Ref Rang e PSA 2857-1 4.27 ng/ml L=0.00 H=4.00 TESTOSTERONE TOTAL (MALES) S PH - Collect Date/Time: 02/12/2022 09:37 Test Name Code Test Result Test Units Test Ref Rang e TESTOSTERONE 171.00 ng/dL L=175 H=781 CBC - Collect Date/Time: 12/2021 09:37 Test Name Code Test Result Test Units Test Ref Rang e WBC 6690-2 6.2 K/uL L=4.5 H=11.0 RBC 789-8 4.2 M/uL L=4.6 H=6.0 HEMOGLOBIN 718-7 13.4 g/dL L=14.0 H=18.0 HEMATOCRIT 4544-3 40.3 % L=41.0 H=53.0 MCV 787-2 96.0 fL L=80.0 H=100 MCH 785-6 31.9 pg L=25.0 H=34.0 MCHC 786-4 33.3 g/dl L=31.0 H=37.0 RDW 788-0 11.8 % L=11.0 H=14.5 PLATELET 777-3 189 K/uL L=150 H=450 #NEUT 751-8 4.48 K/ul L=1.50 H=7.20 %NEUT 770-8 72.5 % L=40.0 H=79.0 %LYMPH 736-9 10.7 % L=20.0 H=40.0 %MONO 5905-5 14.4 % L=1.0 H=10.0 %EOSIN 713-8 1.90 % L=1.00 H=4.00 %BASO 706-2 0.30 % L=0.00 H=1.00 %IG 97288-0 0.20 % L=0.00 H=8.00 MANUAL DIFF 54327-6 NOT INDICATED N/A RBC MORPH 6742-1 NOT INDICATED N/A PLT ESTIMATE 26429-5 NOT INDICATED N/A Active Medications Medication Code Dose Units Frequency Route Modificatio n Start Date/Time amLODIPine Besylate 5MG Oral Tablet 113492 5 MILLIGRAMS DAILY ORAL 023 12:19 Prescription Detail 5 MILLIGRAMS ORAL DAILY Aspirin 325MG Oral Tablet 067487 325 MILLIGRAMS DAILY ORAL 023 12:19 Prescription Detail 325 MILLIGRAMS ORAL DAILY Atorvastatin Calcium 80MG Oral Tablet 530912 80 MILLIGRAMS EVENING ORAL 023 12:19 Prescription Detail 80 MILLIGRAMS ORAL EVENING Bisoprolol Fumarate 5MG Oral Tablet 449357 5 MILLIGRAMS DAILY ORAL 023 12:19 Prescription Detail 5 MILLIGRAMS ORAL DAILY Clopidogrel 75MG Oral Tablet 105917 75 MILLIGRAMS DAILY ORAL 12:19 Prescription Detail 75 MILLIGRAMS ORAL DAILY Diclofenac Sodium 50MG Oral Tablet, Enteric Coated 217448 50 MILLIGRAMS NEEDED DAILY ORAL 08/26/2022 12:19 Prescription Detail 50 MILLIGRAMS ORAL NEEDED DAILY Ezetimibe 10 MG Oral Tablet 925341 10 MG DAILY ORAL 08/27/19 12:19 Prescription Detail 10 MG ORAL DAILY Loratadine 10MG Oral Tablet 928334 10 MILLIGRAMS NEEDED DAILY ORAL 08/26/2022 12:19 Prescription Detail 10 MILLIGRAMS ORAL NEEDED DAILY Losartan Potassium 100MG Oral Tablet 784109 100 MILLIGRAMS DAILY ORAL 023 12:19 Prescription Detail 100 MILLIGRAMS ORAL DAILY Pantoprazole Sodium 40MG Oral Tablet, Enteric Coated 727088 40 MILLIGRAMS DAILY ORAL 08/05 12:19 Prescription Detail 40 MILLIGRAMS ORAL DAILY Prazosin HCl 5MG Oral Capsule 988619 5 MILLIGRAMS EVENING ORAL 12:19 Prescription Detail 5 MILLIGRAMS ORAL EVENING Vardenafil HCl 20MG Oral Tablet 520918 20 MILLIGRAMS NEEDED DAILY ORAL 08/26/2022 12:19 Prescription Detail 20 MILLIGRAMS ORAL NEEDED DAILY Triamcinolone Acetonide 0.1% Topical application Cream 3342700 1 APPLICATION NEEDED 2X DAILY TOPICAL 08/26/2022 12:15 Prescription Detail 1 APPLICATION TOPICAL NEEDED 2X DAILY FOR ITCHY SKIN IN GROIN Medications Administered During Visit Unknown or Not Available. Encounters Encounter Diagnosis Diagnosis Code Start Date Essential hypertension [id number] Social History Smoking Status Code Start Date End Date Never smoker 775333227 Patient Decision Aids Unknown or Not Available. Discharge Instructions You were admitted to [facility] on 02/12/2022 09:36 with a principal diagnosis of Essential (primary) hypertension You had the following tests done:CBCCOMP METABOLIC PANELLIPID PANELPSA SCREEN (TOTAL PSA) SPHTESTOSTERONE TOTAL (MALES) SPH You were discharged from [facility] on 02/12/2022 09:36 Should you have any questions prior to discharge, please contact a member of your healthcare team. If you have left the hospital and have any questions, please contact your primary care physician. Chief Complaint and Reason For Visit Chief Complaint Date of Onset E785 R7989 I10 E785 02/12/2022 Function Status Unknown or Not Available. Plan of Care Unknown or Not Available. Referral/Transition of Care Unknown or Not Available.
--- OUTSIDE RECORDS SUMMARY | 2023-03-20 16:59 | XMS_ITS | CCD ---
Author Name Unknown Address [address] [place] [address] [place], [place] [phone] Organization Unknown Address [address] [place], [place] [address], [place] [phone] Care Team Providers Care Product Designer Name Role Phone JOSUE ALBA Attending Physician [phone] Vital Signs Vital Sign Value Unit Date/Time Recent/Initial ? BP Systolic 164 mmHg 09/30/2019 09:32 Initial VS BP Diastolic 82 mmHg 09/30/2019 09:32 Initia l VS Respiratory Rate 18 bpm 09/30/2019 09:32 In itial VS Heart Rate 66 bpm 09/30/2019 09:32 Initial VS O2 % BldC Oximetry 98 % 09/30/2019 09:32 Initial VS Body Temperature 97.5 degrees 09/30/2019 09:32 In itial VS Allergies Allergy Code Allergy Type Reaction Status No Known Allergies 0 No known allergies Active Procedures Procedure Code Procedure Type Date Colonoscopy, Flexible, Proxi mal To Splenic Flexure; w/Bx, Single/Multiple 55926 CPT 09/30/2019 EGD Transoral Biopsy Single/Multiple 58925 CPT 09/30/2019 History of Immunizations Unknown or Not Available. Problems Problem Code Start Date Resolved Date Status Hematuria 12317917 10/29/2019 Active Anemia 191263459 10/29/2019 Active Urinary retention 120974464 10/31/2019 Active Prostatitis 1938090 Active Left inguinal hernia 782114226 Acti ve BPH 583861698 Active HTN 11675633 Active Transurethral resection of p rostate syndrome 497053849 Active Obstructive sleep apnea 95024298 A ctive Urinary tract infection 06284713 10/31/2019 A ctive Urticaria 591739426 10/19/2020 Active Results Unknown or Not Available. Active Medications Unknown or Not Available. Medications Administered During Visit Unknown or Not Available. Encounters Encounter Diagnosis Diagnosis Code Start Date Diverticulosis of large inte manjit without perforation or abscess without bleeding K5730 09/30/2019 Social History Smoking Status Code Start Date End Date Never smoker 430103408 Patient Decision Aids Patient Decision Aid SPH Colonoscopy Discharge SPH EGD Discharge Discharge Instructions You were admitted to [facility] on 09/30/2019 08:50 with a principal diagnosis of Diverticulosis of large intestine without perforation or abscess without bleeding You had the following procedures done:Colonoscopy, Flexible, Proximal To Splenic Flexure; w/Bx, Single/MultipleEGD Transoral Biopsy Single/Multiple You were discharged from [facility] on 09/30/2019 12:14 Should you have any questions prior to discharge, please contact a member of your healthcare team. If you have left the hospital and have any questions, please contact your primary care physician. Chief Complaint and Reason For Visit Chief Complaint Date of Onset anemia Function Status Unknown or Not Available. Plan of Care Unknown or Not Available. Referral/Transition of Care Unknown or Not Available.
--- OUTSIDE RECORDS SUMMARY | 2023-03-20 16:59 | XMS_ITS | CCD ---
Author Name Unknown Address [address] [place] [address] [place] [id number] Organization Unknown Address [address] [place], [place] [address], [place] [id number] Care Team Providers Care Forms Examiner Name Role Phone ALBAFATMATAJOSUE Attending Physician [phone] Vital Signs Unknown or Not Available. Allergies Allergy Code Allergy Type Reaction Status No Known Allergies 0 No known allergies Active Procedures Unknown or Not Available. History of Immunizations Unknown or Not Available. 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2 g/dL L=3.5 H=5.0 AST 1920-8 29 U/L L=10 H=35 ALT 1742-6 28 IU/L L=17 H=63 ALKALINE PHOS 6768-6 56 IU/L L=38 H=126 TOTAL BILI 1975-2 0.8 mg/dL L=0.3 H=1.2 ANION GAP 07797-1 4 mEq/L L=7 H=16 AGE 64432-7 73 years eGFR NonAA 27250-2 66 eGFR AA 94973-9 79 CBC - Collect Date/Time: 16:07 Test Name Code Test Result Test Units Test Ref Rang e WBC 6690-2 5.6 K/uL L=4.5 H=11.0 RBC 789-8 4.3 M/uL L=4.6 H=6.0 HEMOGLOBIN 718-7 13.6 g/dL L=14.0 H=18.0 HEMATOCRIT 4544-3 40.8 % L=41.0 H=53.0 MCV 787-2 95.1 fL L=80.0 H=100 MCH 785-6 31.7 pg L=25.0 H=34.0 MCHC 786-4 33.3 g/dl L=31.0 H=37.0 RDW 788-0 11.9 % L=11.0 H=14.5 PLATELET 777-3 196 K/uL L=150 H=450 #NEUT 751-8 3.50 K/ul L=1.50 H=7.20 %NEUT 770-8 62.8 % L=40.0 H=79.0 %LYMPH 736-9 20.1 % L=20.0 H=40.0 %MONO 5905-5 11.3 % L=1.0 H=10.0 %EOSIN 713-8 4.80 % L=1.00 H=4.00 %BASO 706-2 0.50 % L=0.00 H=1.00 %IG 37348-4 0.50 % L=0.00 H=8.00 MANUAL DIFF 29471-0 NOT INDICATED N/A RBC MORPH 6742-1 NOT INDICATED N/A PLT ESTIMATE 07360-9 NOT INDICATED N/A Active Medications Medication Code Dose Units Frequency Route Modificatio n Start Date/Time amLODIPine Besylate 5MG Oral Tablet 127766 5 MILLIGRAMS DAILY ORAL 023 12:19 Prescription Detail 5 MILLIGRAMS ORAL DAILY Aspirin 325MG Oral Tablet 863178 325 MILLIGRAMS DAILY ORAL 023 12:19 Prescription Detail 325 MILLIGRAMS ORAL DAILY Atorvastatin Calcium 80MG Oral Tablet 822371 80 MILLIGRAMS EVENING ORAL 023 12:19 Prescription Detail 80 MILLIGRAMS ORAL EVENING Bisoprolol Fumarate 5MG Oral Tablet 415510 5 MILLIGRAMS DAILY ORAL 12:19 Prescription Detail 5 MILLIGRAMS ORAL DAILY Clopidogrel 75MG Oral Tablet 698296 75 MILLIGRAMS DAILY ORAL 12:19 Prescription Detail 75 MILLIGRAMS ORAL DAILY Diclofenac Sodium 50MG Oral Tablet, Enteric Coated 242379 50 MILLIGRAMS NEEDED DAILY ORAL 08/26/2022 12:19 Prescription Detail 50 MILLIGRAMS ORAL NEEDED DAILY Ezetimibe 10 MG Oral Tablet 948691 10 MG DAILY ORAL 08/27/19 12:19 Prescription Detail 10 MG ORAL DAILY Loratadine 10MG Oral Tablet 739859 10 MILLIGRAMS NEEDED DAILY ORAL 08/26/2022 12:19 Prescription Detail 10 MILLIGRAMS ORAL NEEDED DAILY Losartan Potassium 100MG Oral Tablet 419709 100 MILLIGRAMS DAILY ORAL 023 12:19 Prescription Detail 100 MILLIGRAMS ORAL DAILY Pantoprazole Sodium 40MG Oral Tablet, Enteric Coated 170767 40 MILLIGRAMS DAILY ORAL 08/05 12:19 Prescription Detail 40 MILLIGRAMS ORAL DAILY Prazosin HCl 5MG Oral Capsule 301603 5 MILLIGRAMS EVENING ORAL 12:19 Prescription Detail 5 MILLIGRAMS ORAL EVENING Vardenafil HCl 20MG Oral Tablet 410004 20 MILLIGRAMS NEEDED DAILY ORAL 08/26/2022 12:19 Prescription Detail 20 MILLIGRAMS ORAL NEEDED DAILY Triamcinolone Acetonide 0.1% Topical application Cream 8602534 1 APPLICATION NEEDED 2X DAILY TOPICAL 08/26/2022 12:15 Prescription Detail 1 APPLICATION TOPICAL NEEDED 2X DAILY FOR ITCHY SKIN IN GROIN Medications Administered During Visit Unknown or Not Available. Encounters Encounter Diagnosis Diagnosis Code Start Date Anemia 706977739 09/28/2019 Social History Smoking Status Code Start Date End Date Never smoker 570374585 Patient Decision Aids Unknown or Not Available. Discharge Instructions You were admitted to [facility] on 09/28/2019 16:00 with a principal diagnosis of Anemia, unspecified You had the following tests done:CBCCOMP METABOLIC PANEL You were discharged from [facility] on 09/28/2019 16:00 Should you have any questions prior to [...]
--- OUTSIDE RECORDS SUMMARY | 2023-03-20 16:59 | XMS_ITS | CCD ---
Author Name Unknown Address [address] [place] [address] [place] [id number] Organization Unknown Address [address] [place], [place] [address], [place] [phone] Care Team Providers Care [employer] Attendant Name Role Phone KARLA PABON Attending Physician [phone] Vital Signs Unknown or Not Available. Allergies Allergy Code Allergy Type Reaction Status No Known Allergies 0 No known allergies Active Procedures Procedure Code Procedure Type Date XR CHEST 2V 848208969 SNOMED CT 02/12/2022 History of Immunizations Unknown or Not Available. Problems Problem Code Start Date Resolved Date Status Hematuria 14169341 10/29/2019 Active Anemia 376428757 10/29/2019 Active Urinary retention 819040479 10/31/2019 Active Prostatitis 0545045 Active Left inguinal hernia 934919316 Acti ve BPH 157612367 Active HTN 95170237 Active Transurethral resection of p rostate syndrome 842786560 Active Obstructive sleep apnea 39680770 A ctive Urinary tract infection 52867589 10/31/2019 A ctive Urticaria 636807025 10/19/2020 Active Results Unknown or Not Available. Active Medications Medication Code Dose Units Frequency Route Modificatio n Start Date/Time amLODIPine Besylate 5MG Oral Tablet 983055 5 MILLIGRAMS DAILY ORAL 023 12:19 Prescription Detail 5 MILLIGRAMS ORAL DAILY Aspirin 325MG Oral Tablet 512689 325 MILLIGRAMS DAILY ORAL 023 12:19 Prescription Detail 325 MILLIGRAMS ORAL DAILY Atorvastatin Calcium 80MG Oral Tablet 846607 80 MILLIGRAMS EVENING ORAL 023 12:19 Prescription Detail 80 MILLIGRAMS ORAL EVENING Bisoprolol Fumarate 5MG Oral Tablet 504825 5 MILLIGRAMS DAILY ORAL 023 12:19 Prescription Detail 5 MILLIGRAMS ORAL DAILY Clopidogrel 75MG Oral Tablet 493307 75 MILLIGRAMS DAILY ORAL 3 12:19 Prescription Detail 75 MILLIGRAMS ORAL DAILY Diclofenac Sodium 50MG Oral Tablet, Enteric Coated 774983 50 MILLIGRAMS NEEDED DAILY ORAL 08/26/2022 12:19 Prescription Detail 50 MILLIGRAMS ORAL NEEDED DAILY Ezetimibe 10 MG Oral Tablet 272485 10 MG DAILY ORAL 08/27/19 12:19 Prescription Detail 10 MG ORAL DAILY Loratadine 10MG Oral Tablet 891233 10 MILLIGRAMS NEEDED DAILY ORAL 08/26/2022 12:19 Prescription Detail 10 MILLIGRAMS ORAL NEEDED DAILY Losartan Potassium 100MG Oral Tablet 206740 100 MILLIGRAMS DAILY ORAL 023 12:19 Prescription Detail 100 MILLIGRAMS ORAL DAILY Pantoprazole Sodium 40MG Oral Tablet, Enteric Coated 496134 40 MILLIGRAMS DAILY ORAL 08/05 12:19 Prescription Detail 40 MILLIGRAMS ORAL DAILY Prazosin HCl 5MG Oral Capsule 122224 5 MILLIGRAMS EVENING ORAL 12:19 Prescription Detail 5 MILLIGRAMS ORAL EVENING Vardenafil HCl 20MG Oral Tablet 817840 20 MILLIGRAMS NEEDED DAILY ORAL 08/26/2022 12:19 Prescription Detail 20 MILLIGRAMS ORAL NEEDED DAILY Triamcinolone Acetonide 0.1% Topical application Cream 9576088 1 APPLICATION NEEDED 2X DAILY TOPICAL 08/26/2022 12:15 Prescription Detail 1 APPLICATION TOPICAL NEEDED 2X DAILY FOR ITCHY SKIN IN GROIN Medications Administered During Visit Unknown or Not Available. Encounters Encounter Diagnosis Diagnosis Code Start Date Cough, unspecified R059 02/12/2022 Social History Smoking Status Code Start Date End Date Never smoker [id number] Patient Decision Aids Unknown or Not Available. Discharge Instructions You were admitted to on 02/12/2022 10:20 with a principal diagnosis of Cough, unspecified You were discharged from on 02/12/2022 10:20 Should you have any questions prior to discharge, please contact a member of your healthcare team. If you have left the hospital and have any questions, please contact your primary care physician. Chief Complaint and Reason For Visit Chief Complaint Date of Onset R059 Function Status Unknown or Not Available. Plan of Care Unknown or Not Available. Referral/Transition of Care Unknown or Not Available.
--- OUTSIDE RECORDS SUMMARY | 2023-03-20 16:59 | XMS_ITS | CCD ---
Author Name Unknown Address [address] [place] [address] [place], [place] [phone] Organization Unknown Address [address] [place] [address] [place], [place] [phone] Care Team Providers Care Heel Pricker Name Role Phone GUSTAVO BISHOP Attending Physician [phone] GUSTAVO BISHOP Er Physician [phone] KARLA PABON (Secondary) Physician [phone] Vital Signs Vital Sign Value Unit Date/Time Recent/Initial ? BMI (Body Mass Index) 29.65 kg/m^2 10/04/2019 19: 48 Initial VS Weight Measured 195 lbs 10/04/2019 19:48 Ini tial VS Height 68 in 10/04/2019 19:48 Initial VS BSA (Body Surface Area) 2.06 m^2 10/04/2019 1 9:48 Initial VS BP Systolic 141 mmHg 10/04/2019 19:48 Initial VS BP Diastolic 65 mmHg 10/04/2019 19:48 Initia l VS Respiratory Rate 20 bpm 10/04/2019 19:48 In itial VS Heart Rate 75 bpm 10/04/2019 19:48 Initial VS O2 % BldC Oximetry 95 % 10/04/2019 19:48 Initial VS Body Temperature 98.6 degrees 10/04/2019 19:48 In itial VS BP Systolic 111 mmHg 10/04/2019 21:00 Most Re cent VS BP Diastolic 57 mmHg 10/04/2019 21:00 Most R ecent VS Respiratory Rate 16 bpm 10/04/2019 21:[address] Recent VS Heart Rate 72 bpm 10/04/2019 21:00 Most Rec ent VS O2 % BldC Oximetry 90 % 10/04/2019 21:00 Most Recent VS Body Temperature 98.4 degrees 10/04/2019 21:[address] Recent VS Allergies Allergy Code Allergy Type Reaction Status No Known Allergies 0 No known allergies Active Procedures Unknown or Not Available. History of Immunizations Unknown or Not Available. Problems Problem Code Start Date Resolved Date Status Hematuria 82508497 10/29/2019 Active Anemia 508068842 10/29/2019 Active Urinary retention 234620821 10/31/2019 Active Prostatitis 9693509 Active Left inguinal hernia 270970143 Acti ve BPH 185520760 Active HTN 04495566 Active Transurethral resection of p rostate syndrome 819774866 Active Obstructive sleep apnea 85002879 A ctive Urinary tract infection 54586410 10/31/2019 A ctive Urticaria 716509306 10/19/2020 Active Results URINALYSIS - Collect Date/Ti me: 10/04/2019 20:25 Test Name Code Test Result Test Units Test Ref Rang e COLOR 61107-3 DK. ORANG N/A CLARITY 86757-2 CLEAR N/A GLUCOSE 93193-9 NEGATIVE N/A BILIRUBIN 90564-9 NEGATIVE N/A KETONE 73930-4 NEGATIVE N/A SP GRAVITY 30953-1 1.010 N/A PH 09984-0 7.0 N/A PROTEIN 33119-5 NEGATIVE N/A UROBILINOGEN 85298-8 0.2 N/A NITRITE 60594-1 NEGATIVE N/A BLOOD 91421-6 3+ N/A LEUKOCYTES 13806-6 NEGATIVE N/A MICROSCOPIC 52470-6 SEE BELOW N/A WBC 5821-4 0-2 N/A RBC 87985-6 TNTC N/A EPI CELLS 50415-5 NONE SEEN N/A BACTERIA 5769-5 FEW N/A CRYSTALS 10434-7 NONE SEEN N/A MUCOUS 8247-9 NONE SEEN N/A TRICHOMONAS 64702-6 NONE SEEN N/A YEAST 67910-1 NONE SEEN N/A CASTS 9439-1 NONE SEEN N/A CULTURE 46879-2 NOT INDICA N/A Spec Source: 82246-7 Cath N/A Active Medications Unknown or Not Available. Medications Administered During Visit Unknown or Not Available. Encounters Encounter Diagnosis Diagnosis Code Start Date Other complications of anesthesia, initial encou nter [id number] 10/04/2019 Social History Smoking Status Code Start Date End Date Never smoker 724933875 Patient Decision Aids Unknown or Not Available. Discharge Instructions You were admitted to [facility] on 10/04/2019 19:35 with a principal diagnosis of Other complications of anesthesia, initial encounter You had the following tests done:URINALYSIS You were discharged from [facility] on 10/04/2019 21:18 Should you have any questions prior to discharge, please contact a member of your healthcare team. If you have left the hospital and have any questions, please contact your primary care physician. Chief Complaint and Reason For Visit Chief Complaint Date of Onset SWOLLEN PROSTATE Function Status Unknown or Not Available. Plan of Care Unknown or Not Available. Referral/Transition of Care Unknown or Not Available.
--- OUTSIDE RECORDS SUMMARY | 2023-03-20 16:59 | XMS_ITS | CCD ---
Author Name Unknown Address [address] [place] [address] [place], [place] [phone] Organization Unknown Address [address] [place] [address] [place], [place] [phone] Care Team Providers Care Fire Hose Curer Name Role Phone NIKOLE WALKER Attending Physician [phone] NIKOLE WALKER Er Physician 3 [phone] Lewis Bowles Registered Nurse [phone] Vital Signs Vital Sign Value Unit Date/Time Recent/Initial ? Respiratory Rate 18 bpm 09/30/2019 16:05 In itial VS Heart Rate 70 bpm 09/30/2019 16:05 Initial VS O2 % BldC Oximetry 95 % 09/30/2019 16:05 Initial VS BP Systolic 148 mmHg 09/30/2019 16:08 Initial VS BP Diastolic 69 mmHg 09/30/2019 16:08 Initia l VS BMI (Body Mass Index) 24.37 kg/m^2 09/30/2019 16: 30 Initial VS Weight Measured 165 lbs 09/30/2019 16:30 Ini tial VS Height 69 in 09/30/2019 16:30 Initial VS BSA (Body Surface Area) 1.91 m^2 09/30/2019 1 6:30 Initial VS BP Systolic 112 mmHg 09/30/2019 17:00 Most Re cent VS BP Diastolic 56 mmHg 09/30/2019 17:00 Most R ecent VS Respiratory Rate 14 bpm 09/30/2019 17:[address] Recent VS Heart Rate 75 bpm 09/30/2019 17:00 Most Rec ent VS O2 % BldC Oximetry 93 % 09/30/2019 17:00 Most Recent VS Allergies Allergy Code Allergy Type Reaction Status No Known Allergies 0 No known allergies Active Procedures Unknown or Not Available. History of Immunizations Unknown or Not Available. Problems Problem Code Start Date Resolved Date Status Hematuria 91557133 10/29/2019 Active Anemia 773298730 10/29/2019 Active Urinary retention 449914623 10/31/2019 Active Prostatitis 5397928 Active Left inguinal hernia 138420378 Acti ve BPH 205357451 Active HTN 33441612 Active Transurethral resection of p rostate syndrome 726227865 Active Obstructive sleep apnea 11070098 A ctive Urinary tract infection 12880503 10/31/2019 A ctive Urticaria 690541500 10/19/2020 Active Results URINALYSIS - Collect Date/Ti me: 09/30/2019 16:00 Test Name Code Test Result Test Units Test Ref Rang e COLOR 25511-3 LT. YELLO N/A CLARITY 13356-9 CLEAR N/A GLUCOSE 20362-5 NEGATIVE N/A BILIRUBIN 95580-4 NEGATIVE N/A KETONE 38581-2 NEGATIVE N/A SP GRAVITY 78120-5 1.015 N/A PH 93618-1 7.5 N/A PROTEIN 67538-4 NEGATIVE N/A UROBILINOGEN 71564-3 0.2 N/A NITRITE 46538-3 NEGATIVE N/A BLOOD 37581-5 NEGATIVE N/A LEUKOCYTES 30240-7 NEGATIVE N/A MICROSCOPIC 87927-6 NOT INDICATED N/A Spec Source: 49847-3 Cath N/A Active Medications Medications Administered During Visit Medication Dose Units Frequency Route Date/Time of Last Dose cefTRIAXone 1GM INJECTION VIAL 1 GM X1 IV PUSH (SLOW) 09/30/2019 16 :50 TAMSULOSIN 0.4MG ORAL CAPSULE 0.4 MG DAILY PO 09/30/2019 16:5 9 TAMSULOSIN 0.4MG ORAL CAPSULE 0.4 MG X1 PO 09/30/2019 16:5 0 Encounters Encounter Diagnosis Diagnosis Code Start Date Benign prostatic hyperplasia with lower urinary tract symptoms N401 09/30/2019 Social History Smoking Status Code Start Date End Date Never smoker 325667840 Patient Decision Aids Unknown or Not Available. Discharge Instructions You were admitted to [facility] on 09/30/2019 15:36 with a principal diagnosis of Benign prostatic hyperplasia with lower urinary tract symptoms You had the following tests done:URINALYSIS You were discharged from [facility] on 09/30/2019 17:23 Should you have any questions prior to discharge, please contact a member of your healthcare team. If you have left the hospital and have any questions, please contact your primary care physician. Chief Complaint and Reason For Visit Chief Complaint Date of Onset DIFFICULTY URINATING Function Status Unknown or Not Available. Plan of Care Unknown or Not Available. Referral/Transition of Care Unknown or Not Available.
--- OUTSIDE RECORDS SUMMARY | 2023-03-20 17:00 | XMS_ITS | CCD ---
Author Name Unknown Address [address] [place] [address] [place], [place] [id number] Organization Unknown Address [address] [place], [place] [address], [place] [phone] Care Team Providers Care Hospital Carrier Name Role Phone JUANITA GUERRERO Attending Physician [phone] Vital Signs Unknown or Not Available. Allergies Allergy Code Allergy Type Reaction Status No Known Allergies 0 No known allergies Active Procedures Unknown or Not Available. History of Immunizations Unknown or Not Available. Problems Problem Code Start Date Resolved Date Status Hematuria 44222540 10/29/2019 Active Anemia 836684387 10/29/2019 Active Urinary retention 392831922 10/31/2019 Active Prostatitis 2102214 Active Left inguinal hernia 663708395 Acti ve BPH 103009867 Active HTN 20509187 Active Transurethral resection of p rostate syndrome 867675943 Active Obstructive sleep apnea 59381628 A ctive Urinary tract infection 90106322 10/31/2019 A ctive Urticaria 757989404 10/19/2020 Active Results Unknown or Not Available. Active Medications Medication Code Dose Units Frequency Route Modificatio n Start Date/Time amLODIPine Besylate 5MG Oral Tablet 505963 5 MILLIGRAMS DAILY ORAL 023 12:19 Prescription Detail 5 MILLIGRAMS ORAL DAILY Aspirin 325MG Oral Tablet 355264 325 MILLIGRAMS DAILY ORAL 023 12:19 Prescription Detail 325 MILLIGRAMS ORAL DAILY Atorvastatin Calcium 80MG Oral Tablet 460504 80 MILLIGRAMS EVENING ORAL 023 12:19 Prescription Detail 80 MILLIGRAMS ORAL EVENING Bisoprolol Fumarate 5MG Oral Tablet 098235 5 MILLIGRAMS DAILY ORAL 023 12:19 Prescription Detail 5 MILLIGRAMS ORAL DAILY Clopidogrel 75MG Oral Tablet 662717 75 MILLIGRAMS DAILY ORAL 3 12:19 Prescription Detail 75 MILLIGRAMS ORAL DAILY Diclofenac Sodium 50MG Oral Tablet, Enteric Coated 087463 50 MILLIGRAMS NEEDED DAILY ORAL 08/26/2022 12:19 Prescription Detail 50 MILLIGRAMS ORAL NEEDED DAILY Ezetimibe 10 MG Oral Tablet 521539 10 MG DAILY ORAL 08/27/19 12:19 Prescription Detail 10 MG ORAL DAILY Loratadine 10MG Oral Tablet 955586 10 MILLIGRAMS NEEDED DAILY ORAL 08/26/2022 12:19 Prescription Detail 10 MILLIGRAMS ORAL NEEDED DAILY Losartan Potassium 100MG Oral Tablet 908258 100 MILLIGRAMS DAILY ORAL 023 12:19 Prescription Detail 100 MILLIGRAMS ORAL DAILY Pantoprazole Sodium 40MG Oral Tablet, Enteric Coated 477227 40 MILLIGRAMS DAILY ORAL 08/05 12:19 Prescription Detail 40 MILLIGRAMS ORAL DAILY Prazosin HCl 5MG Oral Capsule 120338 5 MILLIGRAMS EVENING ORAL 12:19 Prescription Detail 5 MILLIGRAMS ORAL EVENING Vardenafil HCl 20MG Oral Tablet 609900 20 MILLIGRAMS NEEDED DAILY ORAL 08/26/2022 12:19 Prescription Detail 20 MILLIGRAMS ORAL NEEDED DAILY Triamcinolone Acetonide 0.1% Topical application Cream 2496155 1 APPLICATION NEEDED 2X DAILY TOPICAL 08/26/2022 12:15 Prescription Detail 1 APPLICATION TOPICAL NEEDED 2X DAILY FOR ITCHY SKIN IN GROIN Medications Administered During Visit Unknown or Not Available. Encounters Encounter Diagnosis Diagnosis Code Start Date History and physical examination, administrative [id number] 10/10/2021 Social History Smoking Status Code Start Date End Date Never smoker 897920513 Patient Decision Aids Unknown or Not Available. Discharge Instructions You were admitted to [facility] on 10/10/2021 11:13 with a principal diagnosis of Encounter for other administrative examinations You were discharged from [facility] on 10/10/2021 11:13 Should you have any questions prior to discharge, please contact a member of your healthcare team. If you have left the hospital and have any questions, please contact your primary care physician. Chief Complaint and Reason For Visit Chief Complaint Date of Onset M5450 Function Status Unknown or Not Available. Plan of Care Unknown or Not Available. Referral/Transition of Care Unknown or Not Available.
--- OUTSIDE RECORDS SUMMARY | 2023-03-20 17:00 | XMS_ITS | CCD ---
Author Name Unknown Address [address] [place] [address] [place], [place] [phone] Organization Unknown Address [address] [place] [address] [place], [place] [id number] Care Team Providers Care Pump Machine Operator Name Role Phone KARLA PABON Attending Physician [phone] KARLA PABON Rounding (Secondary) Physician [phone] Vital Signs Unknown or Not Available. Allergies Allergy Code Allergy Type Reaction Status No Known Allergies 0 No known allergies Active Procedures Unknown or Not Available. History of Immunizations Unknown or Not Available. 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 Obstructive sleep apnea 35834821 A ctive Urinary tract infection 06558736 10/31/2019 A ctive Urticaria 809092347 10/19/2020 Active Results IRON & TIBC PANEL - Collect Date/Time: 06/15/2019 10:29 Test Name Code Test Result Test Units Test Ref Rang e IRON 2498-4 100 ug/dL L=45 H=182 TRANSFERRIN1 3034-6 214 mg/dL L=203 H=362 IBCT 2500-7 300 ug/dL L=250 H=450 %SAT 2502-3 33 % L=20 H=55 RETICULOCYTE COUNT - Collect Date/Time: 06/15/2019 10:29 Test Name Code Test Result Test Units Test Ref Rang e RETIC 18565-7 2.0 % L=0.5 H=2.0 RETIC# 67729-1 0.08 10^6/uL L=0.01 H=0.09 IRF 10124-6 15 % L=2 H=15 FERRITIN - Collect Date/Time : 06/15/2019 10:29 Test Name Code Test Result Test Units Test Ref Rang e FERRITIN 2276-4 60.0 ng/mL L=20.0 H=380 VITAMIN B12 (CYANOCOBALAMIN) - Collect Date/Time: 06/15/2019 10:29 Test Name Code Test Result Test Units Test Ref Rang e Vitamin B12 2132-9 386 PG/ML L=200 G=8969 Active Medications Medication Code Dose Units Frequency Route Modificatio n Start Date/Time amLODIPine Besylate 5MG Oral Tablet 091669 5 MILLIGRAMS DAILY ORAL 023 12:19 Prescription Detail 5 MILLIGRAMS ORAL DAILY Aspirin 325MG Oral Tablet 519063 325 MILLIGRAMS DAILY ORAL 023 12:19 Prescription Detail 325 MILLIGRAMS ORAL DAILY Atorvastatin Calcium 80MG Oral Tablet 513688 80 MILLIGRAMS EVENING ORAL 023 12:19 Prescription Detail 80 MILLIGRAMS ORAL EVENING Bisoprolol Fumarate 5MG Oral Tablet 347924 5 MILLIGRAMS DAILY ORAL 023 12:19 Prescription Detail 5 MILLIGRAMS ORAL DAILY Clopidogrel 75MG Oral Tablet 745449 75 MILLIGRAMS DAILY ORAL 12:19 Prescription Detail 75 MILLIGRAMS ORAL DAILY Diclofenac Sodium 50MG Oral Tablet, Enteric Coated 876677 50 MILLIGRAMS NEEDED DAILY ORAL 08/26/2022 12:19 Prescription Detail 50 MILLIGRAMS ORAL NEEDED DAILY Ezetimibe 10 MG Oral Tablet 359502 10 MG DAILY ORAL 08/27/19 12:19 Prescription Detail 10 MG ORAL DAILY Loratadine 10MG Oral Tablet 139833 10 MILLIGRAMS NEEDED DAILY ORAL 08/26/2022 12:19 Prescription Detail 10 MILLIGRAMS ORAL NEEDED DAILY Losartan Potassium 100MG Oral Tablet 811469 100 MILLIGRAMS DAILY ORAL 023 12:19 Prescription Detail 100 MILLIGRAMS ORAL DAILY Pantoprazole Sodium 40MG Oral Tablet, Enteric Coated 119202 40 MILLIGRAMS DAILY ORAL 08/05 12:19 Prescription Detail 40 MILLIGRAMS ORAL DAILY Prazosin HCl 5MG Oral Capsule 168131 5 MILLIGRAMS EVENING ORAL 3 12:19 Prescription Detail 5 MILLIGRAMS ORAL EVENING Vardenafil HCl 20MG Oral Tablet 016377 20 MILLIGRAMS NEEDED DAILY ORAL 08/26/2022 12:19 Prescription Detail 20 MILLIGRAMS ORAL NEEDED DAILY Triamcinolone Acetonide 0.1% Topical application Cream 6862979 1 APPLICATION NEEDED 2X DAILY TOPICAL 08/26/2022 12:15 Prescription Detail 1 APPLICATION TOPICAL NEEDED 2X DAILY FOR ITCHY SKIN IN GROIN Medications Administered During Visit Unknown or Not Available. Encounters Encounter Diagnosis Diagnosis Code Start Date Anemia [id number] 06/15/2019 Social History Smoking Status Code Start Date End Date Never smoker [id number] Patient Decision Aids Unknown or Not Available. Discharge Instructions You were admitted to [facility] on 06/15/2019 10:29 with a principal diagnosis of Anemia, unspecified You had the following tests done:FERRITINIRON & TIBC PANELRETICULOCYTE COUNTVITAMIN B12 (CYANOCOBALAMIN) You were discharged from [facility] on 06/15/2019 10:29 Should you have any questions prior to [...]
--- OUTSIDE RECORDS SUMMARY | 2023-03-20 17:00 | XMS_ITS | CCD ---
Author Name Unknown Address [address] [place] [address] [place], [place] [phone] Organization Unknown Address [address] [place] [address] [place], [place] [phone] Care Team Providers Care Graduate Studies Dean Name Role Phone KARLA PABON Attending Physician [phone] KARLA PABON Rounding (Secondary) Physician [phone] Vital Signs Unknown or Not Available. Allergies Allergy Code Allergy Type Reaction Status No Known Allergies 0 No known allergies Active Procedures Unknown or Not Available. History of Immunizations Unknown or Not Available. Problems Problem Code Start Date Resolved Date Status Hematuria 36114937 10/29/2019 Active Anemia 310327404 10/29/2019 Active Urinary retention 152988570 10/31/2019 Active Prostatitis 3734287 Active Left inguinal hernia 551797201 Acti ve BPH 429829169 Active HTN 34217509 Active Transurethral resection of p rostate syndrome 019933220 Active Obstructive sleep apnea 91652734 A ctive Urinary tract infection 89420462 10/31/2019 A ctive Urticaria 186408322 10/19/2020 Active Results COMP METABOLIC PANEL - Colle ct Date/Time: 05/12/2019 11:06 Test Name Code Test Result Test Units Test Ref Rang e GLUCOSE 2345-7 104 mg/dL L=74 H=118 BUN 3094-0 24 mg/dL L=8 H=26 CREATININE 2160-0 1.2 mg/dL L=0.7 H=1.3 SODIUM 2951-2 136 mEQ/L L=136 H=144 POTASSIUM 2823-3 4.5 mEQ/L L=3.6 H=5.1 CHLORIDE 2075-0 108 mEQ/L L=101 H=111 CO2 2028-9 25 mEQ/L L=22 H=32 CALCIUM 82528-9 9.0 mg/dL L=8.9 H=10.3 TOTAL PROTEIN 2885-2 7.0 g/dL L=6.5 H=8.1 ALBUMIN 1751-7 4.2 g/dL L=3.5 H=5.0 AST 1920-8 25 U/L L=10 H=35 ALT 1742-6 20 IU/L L=17 H=63 ALKALINE PHOS 6768-6 60 IU/L L=38 H=126 TOTAL BILI 1975-2 0.9 mg/dL L=0.3 H=1.2 ANION GAP 95869-9 3 mEq/L L=7 H=16 AGE 21664-3 73 years eGFR NonAA 54777-7 59 [place] [address]-6 72 LIPID PANEL - Collect Date/T lorrie: 05/12/2019 11:08 Test Name Code Test Result Test Units Test Ref Rang e CHOLESTEROL 2093-3 133 mg/dL L=1 H=200 TRIGLYCERIDES 2571-8 34 mg/dL L=0 H=150 HDL 2085-9 35 mg/dL L=40 H=99 LDL 36183-3 96 mg/dL L=0 H=100 CHOL/HDL 9830-1 3.8 L=0.0 H=5.0 NON-HDL CHOLESTEROL 75873-2 98 mg/dL L=31 H=130 CBC - Collect Date/Time: 09/2019 11:06 Test Name Code Test Result Test Units Test Ref Rang e WBC 6690-2 4.7 K/uL L=4.5 H=11.0 RBC 789-8 3.9 M/uL L=4.6 H=6.0 HEMOGLOBIN 718-7 12.5 g/dL L=14.0 H=18.0 HEMATOCRIT 4544-3 37.1 % L=41.0 H=53.0 MCV 787-2 94.6 fL L=80.0 H=100 MCH 785-6 31.9 pg L=25.0 H=34.0 MCHC 786-4 33.7 g/dl L=31.0 H=37.0 RDW 788-0 12.2 % L=11.0 H=14.5 PLATELET 777-3 209 K/uL L=150 H=450 #NEUT 751-8 2.96 K/ul L=1.50 H=7.20 %NEUT 770-8 62.9 % L=40.0 H=79.0 %LYMPH 736-9 18.0 % L=20.0 H=40.0 %MONO 5905-5 12.1 % L=1.0 H=10.0 %EOSIN 713-8 5.70 % L=1.00 H=4.00 %BASO 706-2 1.10 % L=0.00 H=1.00 %IG 54477-8 0.20 % L=0.00 H=8.00 MANUAL DIFF 26275-0 NOT INDICATED N/A RBC MORPH 6742-1 NOT INDICATED N/A PLT ESTIMATE 15539-8 NOT INDICATED N/A PSA DIAGNOSTIC - Collect Juan e/Time: 05/12/2019 11:06 Test Name Code Test Result Test Units Test Ref Rang e PSA-DIAG 2857-1 5.24 ng/ml L=0.00 H=4.00 Active Medications Medication Code Dose Units Frequency Route Modificatio n Start Date/Time amLODIPine Besylate 5MG Oral Tablet 095744 5 MILLIGRAMS DAILY ORAL 023 12:19 Prescription Detail 5 MILLIGRAMS ORAL DAILY Aspirin 325MG Oral Tablet 447318 325 MILLIGRAMS DAILY ORAL 023 12:19 Prescription Detail 325 MILLIGRAMS ORAL DAILY Atorvastatin Calcium 80MG Oral Tablet 312817 80 MILLIGRAMS EVENING ORAL 023 12:19 Prescription Detail 80 MILLIGRAMS ORAL EVENING Bisoprolol Fumarate 5MG Oral Tablet 806169 5 MILLIGRAMS DAILY ORAL 023 12:19 Prescription Detail 5 MILLIGRAMS ORAL DAILY Clopidogrel 75MG Oral Tablet 137639 75 MILLIGRAMS DAILY ORAL 3 12:19 Prescription Detail 75 MILLIGRAMS ORAL DAILY Diclofenac Sodium 50MG Oral Tablet, Enteric Coated 348387 50 MILLIGRAMS NEEDED DAILY ORAL 08/26/2022 12:19 Prescription Detail 50 MILLIGRAMS ORAL NEEDED DAILY Ezetimibe 10 MG Oral Tablet 958188 10 MG DAILY ORAL 08/27/19 12:19 Prescription Detail 10 MG ORAL DAILY Loratadine 10MG Oral Tablet 265493 10 MILLIGRAMS NEEDED DAILY ORAL 08/26/2022 12:19 Prescription Detail 10 MILLIGRAMS ORAL NEEDED DAILY Losartan Potassium 100MG Oral Tablet 162288 100 MILLIGRAMS DAILY ORAL 023 12:19 Prescription Detail 100 MILLIGRAMS ORAL DAILY Pantoprazole Sodium 40MG Oral Tablet, Enteric Coated 868223 40 MILLIGRAMS DAILY ORAL 08/05 12:19 Prescription Detail 40 MILLIGRAMS ORAL DAILY Prazosin HCl 5MG Oral Capsule 154525 5 MILLIGRAMS EVENING ORAL 12:19 Prescription Detail 5 MILLIGRAMS ORAL EVENING Vardenafil HCl 20MG Oral Tablet 278959 20 MILLIGRAMS NEEDED DAILY ORAL 08/26/2022 12:19 Prescription Detail 20 MILLIGRAMS ORAL NEEDED DAILY Triamcinolone Acetonide 0.1% Topical application Cream 8505194 1 APPLICATION NEEDED 2X DAILY TOPICAL 08/26/2022 12:15 Prescription Detail 1 APPLICATION TOPICAL NEEDED 2X DAILY FOR ITCHY SKIN IN GROIN Medications Administered During Visit Unknown or Not Available. Encounters Encounter Diagnosis Diagnosis Code Start Date Hyperlipidemia [id number] 05/12/2019 Social History Smoking Status Code Start Date End Date Never smoker [id number] Patient Decision Aids Unknown or Not Available. Discharge Instructions You were admitted to [facility] on 05/12/2019 11:00 with a principal diagnosis of Hyperlipidemia, unspecified You had the following tests done:LIPID PANELCBCCOMP METABOLIC PANELPSA DIAGNOSTIC You were discharged from [facility] on 05/12/2019 11:00 Should you have any questions prior to discharge, please contact a member of your healthcare team. If you have left the hospital and have any questions, please contact your primary care physician. Chief Complaint and Reason For Visit Chief Complaint Date of Onset [id number] Function Status Unknown or Not Available. Plan of Care Unknown or Not Available. Referral/Transition of Care Unknown or Not Available.
== END 2023-03-20 17:04 | disposition home or self-care (01) ==
PROVIDERS: Emergency Provider Emergency Medicine Emergency Medical Services
DX: H81.20 Vestibular neuronitis, unspecified ear (principal)
CPT/HCPCS: 95992; 99283; 99284; A9270